=== PATIENT | male | born 1940 | race Caucasian/White ===

== ENCOUNTER 2018-01-07 21:00 | Inpatient (IN) | payer MEDICARE, MEDICAID ==
--- NOTE | 2018-01-07 21:27 | ED Physician Chart ---
ED Chief Complaint/HPI - Patient Information Date Seen:: 01/07/18 Time Seen:: 21:25 Chief Complaint:: Diarrhea History of Present Illness:: 77 yo male was brought from a correction to ER for evaluation of diarrhea for 1 week. Patient was hospitalized for UTI at [facility] and discharged 6 days ago. Patient was on oral amoxicillin until 3 days ago. Allergies:: Allergies Allergy/AdvReac Type Severity Reaction Status Date / Time cephalexin Allergy Verified 01/07/18 21:19 clindamycin Allergy Verified 01/07/18 21:19 ED Review of Systems - Review of Systems General/Constitutional: No fever, No chills Skin: No bruising Head: No headache Eyes: No pain ENT: No nasal drainage Neck: No thyromegaly Cardio Vascular: No edema Pulmonary: No SOB GI: No nausea, No vomiting Neurological: No focal symptoms Other: Limited review of systems due to mental disability of the patient ED Past Medical History - Past Medical History Past Medical History: Dyslipidemia, Seizures, Thyroid disorder, Other (PROFOUND INTELLECTUAL DISABILITY, HEP B CARRIER, BASAL CELL CARCINOMA, FLACCID NEUROGENIC BLADDER, CATARACTS) Social History: Non Smoker, No Alcohol, No Drug Use Psychiatricy History: Dementia Family Medical History - Family Member Mother History Unknown: Yes Ethnicity: Unknown ED Physical Exam - Physical Examination General/Constitutional: Awake Other Gen/Cons comments:: Wearing helmet to protect head trauma Eyes: PERRL Skin: No ecchymosis ENMT: Nasal exam nl Neck: No nuchal rigidity Respiratory: No Wheeze/Rhonchi/Rales Cardio Vascular: RRR, No murmur, gallop, rubs, NL S1 S2 GI: Nondistended Other GI comments:: G-tube intact Extremities: No edema Other Neuro/Psych comments:: profound intellectual disability ED Labs/Radiology/EKG Results - Lab Results Results: Laboratory Last Values WBC 9.7 Th/cmm (4.8-10.8) 01/07/18 21:30 RBC 4.64 Mil/cmm (3.80-5.80) 01/07/18 21:30 Hgb 14.1 gm/dL (12-16) 01/07/18 21:30 Hct 42.2 % (41.0-60) 01/07/18 21:30 MCV 91.0 fl (80-99) 01/07/18 21:30 MCH 30.3 pg (27.0-31.0) 01/07/18 21:30 MCHC Differential 33.3 pg (28.0-36.0) 01/07/18 21:30 RDW 12.0 % (11.5-20.0) 01/07/18 21:30 Plt Count 296 Th/cmm (150-400) 01/07/18 21:30 MPV 6.8 fl 01/07/18 21:30 Neutrophils % 64.8 % (40.0-80.0) 01/07/18 21:30 Lymphocytes % 21.7 % (20.0-50.0) 01/07/18 21:30 Monocytes % 11.5 % (2.0-10.0) H 01/07/18 21:30 Eosinophils % 1.1 % (0.0-5.0) 01/07/18 21: Basophils % 0.9 % (0.0-2.0) 01/07/18 21:30 PT 12.0 SECONDS (9.5-11.5) H 01/07/18 21:30 INR 1.16 (0.5-1.4) 01/07/18 21:30 PTT (Actin FS) 24.6 SECONDS (26.0-38.0) L 01/07/18 21:30 Sodium 130 mEq/L (136-145) L 01/07/18 21:30 Potassium 4.2 mEq/L (3.5-5.1) 01/07/18 21:30 Chloride 96 mEq/L (98-107) L 01/07/18 21:30 Carbon Dioxide 27.3 mEq/L (21.0-31.0) 01/07/18 21:30 Anion Gap 10.9 (7.0-16.0) 01/07/18 21:30 BUN 35 mg/dL (7-25) H 01/07/18 21:30 Creatinine 0.7 mg/dL (0.7-1.3) 01/07/18 21:30 Est GFR ( Amer) TNP 01/07/18 21:30 Est GFR (Non-Af Amer) TNP 01/07/18 21:30 BUN/Creatinine Ratio 50.0 01/07/18 21:30 Glucose 98 mg/dL (70-105) 01/07/18 21:30 POC Glucose 115 MG/DL (70 - 105) H 01/08/18 01:15 Whole Bld Lactic Acid 1.20 mmol/L (0.60-1.99) 01/07/18 23:20 Calcium 9.3 mg/dL (8.6-10.3) 01/07/18 21:30 Total Bilirubin 0.3 mg/dL (0.3-1.0) 01/07/18 21:30 AST 24 U/L (13-39) 01/07/18 21:30 ALT 17 U/L (7-52) 01/07/18 21:30 Alkaline Phosphatase 76 U/L (34-104) 01/07/18 21:30 Troponin I 0.01 ng/mL (0.01-0.05) 01/07/18 21:30 B-Natriuretic Peptide 78.8 pg/mL (5.0-100.0) 01/07/18 21:30 Total Protein 6.8 gm/dL (6.0-8.3) 01/07/18 21:30 Albumin 3.6 gm/dL (4.2-5.5) L 01/07/18 21:30 Globulin 3.2 gm/dL 01/07/18 21:30 Albumin/Globulin Ratio 1.1 (1.0-1.8) 01/07/18 21:30 Lipase 51 U/L (11-82) 01/07/18 21:30 Urine Source [place] 01/07/18 21:53 Urine Color YELLOW 01/07/18 21:53 Urine Clarity HAZY (CLEAR) 01/07/18 21:53 Urine pH 5.5 (4.6 - 8.0) 01/07/18 21:53 Ur Specific [place] 1.025 (1.005-1.030) 01/07/18 21:53 Urine Protein TRACE mg/dL (NEGATIVE) 01/07/18 21:53 Urine Glucose (UA) NEGATIVE mg/dL (NEGATIVE) 01/07/18 21:53 Urine Ketones NEGATIVE mg/dL (NEGATIVE) 01/07/18 21:53 Urine Blood NEGATIVE (NEGATIVE) 01/07/18 21:53 Urine Nitrate POSITIVE (NEGATIVE) H 01/07/18 21:53 Urine Bilirubin NEGATIVE (NEGATIVE) 01/07/18 21:53 Urine Urobilinogen 0.2 E.U./dL (0.2 - 1.0) 01/07/18 21:53 Ur Leukocyte Esterase SMALL (NEGATIVE) H 01/07/18 21:53 Urine RBC 0-2 /hpf (0-5) H 01/07/18 21:53 Urine WBC 2-5 /hpf (0-5) 01/07/18 21:53 Ur Epithelial Cells FEW /lpf (FEW) 01/07/18 21:53 Urine Bacteria FEW /hpf (NONE SEEN) 01/07/18 21:53 Urine Mucus FEW /lpf (FEW) 01/07/18 21:53 ED Assessment - Assessment General Assessment: Urinary tract infection Gastroenteritis/colitis? Dehydration Hyponatremia Mental retardation Assessment/Comments:: CBC, CMP, UA C-diff Levaquin 500mg IV NS 1L IV bolus Admit to telemetry for further evaluation and management ED Septic Shock - . Is Septic Shock (SBP<90, OR Lactate>4 mmol\L) present?: No ED Reassessment (Disposition) - Reassessment Reassessment Condition:: Improved - Patient Disposition Discharge/Transfer:: Acute Care w/in this hosp Admitting Medical Physician:: Nito Vasquez
[2018-01-07 21:46] LABS: % BASOPHILS 0.9 % (0.0-2.0); % EOSINOPHILS 1.1 % (0.0-5.0); % LYMPHOCYTES 21.7 % (20.0-50.0); % MONOCYTES 11.5 % (2.0-10.0); % NEUTROPHILS 64.8 % (40.0-80.0); BASOPHILE ABSOLUTE 0.1 Th/cumm (0-0.2); EOSINOPHILE ABSOLUTE 0.1 Th/cmm (0.1-0.4); HEMATOCRIT 42.2 % (41.0-60); HEMOGLOBIN 14.1 gm/dL (12-16); LYMPHOCYTE ABSOLUTE 2.1 Th/cmm (1.5-3.0); MEAN CORPUSCULAR HEMOGLOBIN 30.3 pg (27.0-31.0); MEAN CORPUSCULAR HGB CONC 33.3 pg (28.0-36.0); MEAN PLATELET VOLUME 6.8 fl; MONOCYTE ABSOLUTE 1.1 Th/cmm (0.3-1.0); NEUTROPHILE ABSOLUTE 6.3 Th/cmm (1.8-8.0); PLATELET COUNT 296 Th/cmm (150-400); RED BLOOD COUNT 4.64 Mil/cmm (3.80-5.80); WHITE BLOOD COUNT 9.7 Th/cmm (4.8-10.8)
[2018-01-07 22:03] LABS: INR 1.16 (0.5-1.4)
[2018-01-07 22:14] LABS: URINE SOURCE FOLEY PORT
[2018-01-07 22:16] LABS: URINE BILIRUBIN NEGATIVE (NEGATIVE); URINE BLOOD NEGATIVE (NEGATIVE); URINE GLUCOSE (UA) NEGATIVE (NEGATIVE); URINE KETONE NEGATIVE (NEGATIVE); URINE LEUKOCYTE ESTERASE SMALL (NEGATIVE); URINE MICROSCOPIC INDICATED? YES; URINE NITRATE POSITIVE (NEGATIVE); URINE PH 5.5 (4.6 - 8.0); URINE PROTEIN TRACE mg/dL (NEGATIVE); URINE UROBILINOGEN 0.2 E.U./dL (0.2 - 1.0)
[2018-01-07 22:30] LABS: URINE COLOR YELLOW
[2018-01-07 22:31] LABS: URINE CLARITY HAZY (CLEAR)
[2018-01-07 22:39] LABS: URINE RBC 0-2 /hpf (0-5)
[2018-01-07 22:40] LABS: URINE BACTERIA FEW /hpf (NONE SEEN); URINE EPITHELIAL CELLS FEW /lpf (FEW)
[2018-01-07] MEDS ORDERED: Levofloxacin 500mg/100mL 500 MG/100 ML BAG IV ONE ×2 (22:57→23:02)
[2018-01-07 23:11] LABS: ALB/GLOB RATIO 1.1 (1.0-1.8); ALBUMIN 3.6 gm/dL (4.2-5.5); ALKALINE PHOSPHATASE 76 U/L (34-104); ANION GAP 10.9 (7.0-16.0); BILIRUBIN,TOTAL 0.3 mg/dL (0.3-1.0); BUN - UREA NITROGEN 35 mg/dL (7-25); CALCIUM SERUM 9.3 mg/dL (8.6-10.3); CARBON DIOXIDE 27.3 mEq/L (21.0-31.0); CHLORIDE 96 mEq/L (98-107); CREATININE - SERUM 0.7 mg/dL (0.7-1.3); GLUCOSE 98 mg/dL (70-105); LIPASE 51 U/L (11-82); POTASSIUM SERUM 4.2 mEq/L (3.5-5.1); SGOT 24 U/L (13-39); SGPT/ALT 17 U/L (7-52); TOTAL PROTEIN,SERUM 6.8 gm/dL (6.0-8.3)
[2018-01-07 23:14] LABS: SODIUM SERUM 130 mEq/L (136-145)
[2018-01-07] MEDS ORDERED: Sodium Chloride 0.9% 1,000 ML IV ONE (23:24)
[2018-01-07] MEDS ORDERED: ACETAMINOPHEN 640 MG GT PRN (23:45)
[2018-01-07] MEDS ORDERED: Albuterol Nebulizer 2.5mg/3mL HHN PRN (23:47)
[2018-01-07] MEDS ORDERED: Ipratropium Neb 0.5 mg/2.5 mL UD HHN PRN (23:47)
[2018-01-08 01:40] VITALS: BP 128/57
[2018-01-08] MEDS: D5-0.9%NS 1,000 ML IV SCH ×2 (03:05→16:04)
[2018-01-08] MEDS: metroNIDAZOLE 500mg/NS 100mL 500 MG/100 ML BAG IV SCH ×3 (04:27→21:10)
[2018-01-08] MEDS: Levothyroxine 0.088 Mg Tab GT SCH (06:40)
[2018-01-08] MEDS: Multivitamin w/ Minerals 15 mL UDC GT SCH (08:40)
[2018-01-08] MEDS ORDERED: FLUOCINOLONE ACETONIDE 0.01% TP SCH (09:00)
[2018-01-08] MEDS ORDERED: Lacosamide 10 mg/mL 10mL UDC GT SCH (09:00)
--- NOTE | 2018-01-08 11:57 | History and Physical ---
History of Present Illness - HPI Chief Complaint: diarrhea HPI: This is a 77-year old male who is a resident of [facility] admitted to the telemetry unit due to a 1 week history of diarrhea. Patient was recently discharged from [facility] due to UTI and was given po amoxicillin, patient still remained with diarrhea, no reports of any fever at the board and care. Vital Signs: Last Vital Signs Temp 97.3 F 01/08/18 11:52 Pulse 71 01/08/18 11:52 Resp 18 01/08/18 11:52 BP 107/82 01/08/18 11:52 Pulse Ox 99 01/08/18 11:52 Past Medical History Other History: dyslipidemia seizures hypothyroid hep b basal cell carcinoma flaccid neurogenic bladder cataracts profound intellectual disability Family Medical History - Family Member Mother History Unknown: Yes Ethnicity: Unknown Social History Smoke: No Alcohol: None Drugs: None Lives: Care Home - Medications Home Medications: Home Medication Medication Instructions Recorded Type Acetaminophen [Mapap] 640 mg GT Q8H PRN 01/07/18 History Albuterol [Ventolin] 2 puff INH QID PRN 01/07/18 History Bisacodyl [Biscolax] 10 mg RC Q48H PRN 01/07/18 History Calcium Carbonate 1,250 mg GT DAILY 01/07/18 History Cholecalciferol (Vit D3) [Vitamin 500 iu GT BID 01/07/18 History D3] Clonidine HCl [Catapres] 0.1 mg GT Q8H PRN 01/07/18 History Fleet Enema 135 ml RC PRN PRN 01/07/18 History Fluocinolone Acetonide 0.01 % TP BID 01/07/18 History Guaifenesin/Dm/Pseudoephedrine 200 mg GT Q4H PRN 01/07/18 History [Guaifenesin/Pseudoephedrine/Dextromethorphan ] Ibuprofen 400 mg GT Q6H PRN 01/07/18 History Lacosamide [Vimpat] 200 mg GT BID 01/07/18 History Lactulose 30 ml GT BID 01/07/18 History Levocarnitine 660 mg GT TID 01/07/18 History Levothyroxine [Synthroid] 0.088 mg GT QDAC 01/07/18 History Lisinopril 10 mg GT DAILY 01/07/18 History Multivit,Th Iron,Other Min 1 tab GT DAILY 01/07/18 History [Thera-M W/Minerals] Oxybutynin Chloride 10 mg GT DAILY 01/07/18 History Ranitidine HCl 75 mg GT BID 01/07/18 History Valproic Acid [Depakene] 250 mg GT BID 01/07/18 History Valproic Acid [Depakene] 500 mg GT QPM 01/07/18 History diphenhydrAMINE [Benadryl] 25 mg GT PRN PRN 01/07/18 History - Allergies Allergies/Adverse Reactions: Allergies Allergy/AdvReac Type Severity Reaction Status Date / Time cephalexin Allergy Verified 01/07/18 21:19 clindamycin Allergy Verified 01/07/18 21:19 Review of Systems - Review of Systems Constitutional: Report: Weakness Eyes: Report: No Significant Respiratory: Report: No Significant Cardiovascular: Report: No Significant Gastrointestinal: Report: Diarrhea Neurological: Report: Weakness, Seizures Physical Exam - Physical Exam HEENT: Report: Ears Nose Throat within normal limits Neck: Report: Within normal limits Cardiovascular Systems: Report: +s1/s2 noted, Regular, Rate and Rhythm, no murmurs noted Respiratory: Report: Breath Sounds are within normal limits, Clear to Auscultation of lung pretty Abdomen: Report: Non-tender to palpation Back: Report: Inspection of back is within normal limits. Extremities: Report: Non-tender to palpation. Skin: Report: Color of skin is within normal limits, Warm, Dry Neuro/Psych: Report: Mood affect is within normal limits - Lab Results All Lab Results last 24 hours: Laboratory Results - last 24 hr 01/07/18 01/07/18 01/07/18 21:30 21:30 21:30 WBC 9.7 RBC 4.64 Hgb 14.1 Hct 42.2 MCV 91.0 MCH 30.3 MCHC Differential 33.3 RDW 12.0 Plt Count 296 MPV 6.8 Neutrophils % 64.8 Lymphocytes % 21.7 Monocytes % 11.5 H Eosinophils % 1.1 Basophils % 0.9 PT 12.0 H INR 1.16 PTT (Actin FS) 24.6 L Sodium 130 L Potassium 4.2 Chloride 96 L Carbon Dioxide 27.3 Anion Gap 10.9 BUN 35 H Creatinine 0.7 Est GFR ( Amer) TNP Est GFR (Non-Af Amer) TNP BUN/Creatinine Ratio 50.0 Glucose 98 POC Glucose Whole Bld Lactic Acid Calcium 9.3 Total Bilirubin 0.3 AST 24 ALT 17 Alkaline Phosphatase 76 Troponin I B-Natriuretic Peptide Total Protein 6.8 Albumin 3.6 L Globulin 3.2 Albumin/Globulin Ratio 1.1 Lipase 51 Urine Source Urine Color Urine Clarity Urine pH Ur Specific [place] Urine Protein Urine Glucose (UA) Urine Ketones Urine Blood Urine Nitrate Urine Bilirubin Urine Urobilinogen Ur Leukocyte Esterase Urine RBC Urine WBC Ur Epithelial Cells Urine Bacteria Urine Mucus 01/07/18 01/07/18 01/07/18 21:30 21:30 21:53 WBC RBC Hgb Hct MCV MCH MCHC Differential RDW Plt Count MPV Neutrophils % Lymphocytes % Monocytes % Eosinophils % Basophils % PT INR PTT (Actin FS) Sodium Potassium Chloride Carbon Dioxide Anion Gap BUN Creatinine Est GFR ( Amer) Est GFR (Non-Af Amer) BUN/Creatinine Ratio Glucose POC Glucose Whole Bld Lactic Acid Calcium Total Bilirubin AST ALT Alkaline Phosphatase Troponin I 0.01 B-Natriuretic Peptide 78.8 Total Protein Albumin Globulin Albumin/Globulin Ratio Lipase Urine Source [place] Urine Color YELLOW Urine Clarity HAZY Urine pH 5.5 Ur Specific [place] 1.025 Urine Protein TRACE Urine Glucose (UA) NEGATIVE Urine Ketones NEGATIVE Urine Blood NEGATIVE Urine Nitrate POSITIVE H Urine Bilirubin NEGATIVE Urine Urobilinogen 0.2 Ur Leukocyte Esterase SMALL H Urine RBC 0-2 H Urine WBC 2-5 Ur Epithelial Cells FEW Urine Bacteria FEW Urine Mucus FEW 01/07/18 01/08/18 23:20 01:15 WBC RBC Hgb Hct MCV MCH MCHC Differential RDW Plt Count MPV Neutrophils % Lymphocytes % Monocytes % Eosinophils % Basophils % PT INR PTT (Actin FS) Sodium Potassium Chloride Carbon Dioxide Anion Gap BUN Creatinine Est GFR ( Amer) Est GFR (Non-Af Amer) BUN/Creatinine Ratio Glucose POC Glucose 115 H Whole Bld Lactic Acid 1.20 Calcium Total Bilirubin AST ALT Alkaline Phosphatase Troponin I B-Natriuretic Peptide Total Protein Albumin Globulin Albumin/Globulin Ratio Lipase Urine Source Urine Color Urine Clarity Urine pH Ur Specific [place] Urine Protein Urine Glucose (UA) Urine Ketones Urine Blood Urine Nitrate Urine Bilirubin Urine Urobilinogen Ur Leukocyte Esterase Urine RBC Urine WBC Ur Epithelial Cells Urine Bacteria Urine Mucus - Assessment Assessment: Severe dehydration Diarrhea Acute UTI dyslipidemia seizures hypothyroid hx hep b hx basal cell carcinoma flaccid neurogenic bladder profound intellectual disability - Plan Plan: ivf for hydration collect stool for cdiff and culture iv flagyl follow up labs in am will continue to follow patient.
[2018-01-09] MEDS: metroNIDAZOLE 500mg/NS 100mL 500 MG/100 ML BAG IV SCH ×3 (04:19→20:52)
[2018-01-09] MEDS: D5-0.9%NS 1,000 ML IV SCH (04:26)
[2018-01-09 06:21] LABS: % BASOPHILS 0.3 % (0.0-2.0); % EOSINOPHILS 0.8 % (0.0-5.0); % LYMPHOCYTES 19.3 % (20.0-50.0); % MONOCYTES 12.6 % (2.0-10.0); EOSINOPHILE ABSOLUTE 0.1 Th/cmm (0.1-0.4); HEMOGLOBIN 12.8 gm/dL (12-16); LYMPHOCYTE ABSOLUTE 1.8 Th/cmm (1.5-3.0); MEAN CELL VOLUME 91.3 fl (80-99); MEAN CORPUSCULAR HEMOGLOBIN 31.7 pg (27.0-31.0); MEAN CORPUSCULAR HGB CONC 34.7 pg (28.0-36.0); MEAN PLATELET VOLUME 6.8 fl; MONOCYTE ABSOLUTE 1.1 Th/cmm (0.3-1.0); NEUTROPHILE ABSOLUTE 6.1 Th/cmm (1.8-8.0); PLATELET COUNT 253 Th/cmm (150-400); RED BLOOD COUNT 4.05 Mil/cmm (3.80-5.80); RED CELL DISTRIBUTION WIDTH 11.7 % (11.5-20.0); WHITE BLOOD COUNT 9.1 Th/cmm (4.8-10.8)
[2018-01-09 06:36] LABS: ANION GAP 10.8 (7.0-16.0); BUN - UREA NITROGEN 17 mg/dL (7-25); CALCIUM SERUM 8.8 mg/dL (8.6-10.3); CARBON DIOXIDE 25.6 mEq/L (21.0-31.0); CHLORIDE 101 mEq/L (98-107); CREATININE - SERUM 0.7 mg/dL (0.7-1.3); GLUCOSE 89 mg/dL (70-105); POTASSIUM SERUM 4.4 mEq/L (3.5-5.1); SODIUM SERUM 133 mEq/L (136-145)
[2018-01-09] MEDS: Levothyroxine 0.088 Mg Tab GT SCH (06:50)
[2018-01-09] MEDS: Multivitamin w/ Minerals 15 mL UDC GT SCH (09:26)
--- NOTE | 2018-01-09 10:50 | Internal Medicine Prog Note ---
Internal Medicine Subjective - Subjective Service Date: 01/09/18 Patient seen and examined:: with staff Patient is:: awake Per staff patient has:: tolerating meds Internal Medicine Objective - Results Result Diagrams: 01/09/18 05:40 01/09/18 05:40 Recent Labs: Laboratory Last Values WBC 9.1 Th/cmm (4.8-10.8) 01/09/18 05:40 RBC 4.05 Mil/cmm (3.80-5.80) 01/09/18 05:40 Hgb 12.8 gm/dL (12-16) 01/09/18 05:40 Hct 37.0 % (41.0-60) L 01/09/18 05:40 MCV 91.3 fl (80-99) 01/09/18 05:40 MCH 31.7 pg (27.0-31.0) H 01/09/18 05:40 MCHC Differential 34.7 pg (28.0-36.0) 01/09/18 05:40 RDW 11.7 % (11.5-20.0) 01/09/18 05:40 Plt Count 253 Th/cmm (150-400) 01/09/18 05:40 MPV 6.8 fl 01/09/18 05:40 Neutrophils % 67.0 % (40.0-80.0) 01/09/18 05:40 Lymphocytes % 19.3 % (20.0-50.0) L 01/09/18 05:40 Monocytes % 12.6 % (2.0-10.0) H 01/09/18 05:40 Eosinophils % 0.8 % (0.0-5.0) 01/09/18 05:40 Basophils % 0.3 % (0.0-2.0) 01/09/18 05:40 PT 12.0 SECONDS (9.5-11.5) H 01/07/18 21:30 INR 1.16 (0.5-1.4) 01/07/18 21:30 PTT (Actin FS) 24.6 SECONDS (26.0-38.0) L 01/07/18 21:30 Sodium 133 mEq/L (136-145) L 01/09/18 05:40 Potassium 4.4 mEq/L (3.5-5.1) 01/09/18 05:40 Chloride 101 mEq/L (98-107) 01/09/18 05:40 Carbon Dioxide 25.6 mEq/L (21.0-31.0) 01/09/18 05:40 Anion Gap 10.8 (7.0-16.0) 01/09/18 05:40 BUN 17 mg/dL (7-25) 01/09/18 05:40 Creatinine 0.7 mg/dL (0.7-1.3) 01/09/18 05:40 Est GFR ( Amer) TNP 01/09/18 05:40 Est GFR (Non-Af Amer) TNP 01/09/18 05:40 BUN/Creatinine Ratio 24.3 01/09/18 05:40 Glucose 89 mg/dL (70-105) 01/09/18 05:40 POC Glucose 115 MG/DL (70 - 105) H 01/08/18 01:15 Whole Bld Lactic Acid 1.20 mmol/L (0.60-1.99) 01/07/18 23:20 Calcium 8.8 mg/dL (8.6-10.3) 01/09/18 05:40 Total Bilirubin 0.3 mg/dL (0.3-1.0) 01/07/18 21:30 AST 24 U/L (13-39) 01/07/18 21:30 ALT 17 U/L (7-52) 01/07/18 21:30 Alkaline Phosphatase 76 U/L (34-104) 01/07/18 21:30 Troponin I 0.01 ng/mL (0.01-0.05) 01/07/18 21:30 B-Natriuretic Peptide 78.8 pg/mL (5.0-100.0) 01/07/18 21:30 Total Protein 6.8 gm/dL (6.0-8.3) 01/07/18 21:30 Albumin 3.6 gm/dL (4.2-5.5) L 01/07/18 21:30 Globulin 3.2 gm/dL 01/07/18 21:30 Albumin/Globulin Ratio 1.1 (1.0-1.8) 01/07/18 21:30 Lipase 51 U/L (11-82) 01/07/18 21:30 Urine Source [place] 01/07/18 21:53 Urine Color YELLOW 01/07/18 21:53 Urine Clarity HAZY (CLEAR) 01/07/18 21:53 Urine pH 5.5 (4.6 - 8.0) 01/07/18 21:53 Ur Specific [place] 1.025 (1.005-1.030) 01/07/18 21:53 Urine Protein TRACE mg/dL (NEGATIVE) 01/07/18 21:53 Urine Glucose (UA) NEGATIVE mg/dL (NEGATIVE) 01/07/18 21:53 Urine Ketones NEGATIVE mg/dL (NEGATIVE) 01/07/18 21:53 Urine Blood NEGATIVE (NEGATIVE) 01/07/18 21:53 Urine Nitrate POSITIVE (NEGATIVE) H 01/07/18 21:53 Urine Bilirubin NEGATIVE (NEGATIVE) 01/07/18 21:53 Urine Urobilinogen 0.2 E.U./dL (0.2 - 1.0) 01/07/18 21:53 Ur Leukocyte Esterase SMALL (NEGATIVE) H 01/07/18 21:53 Urine RBC 0-2 /hpf (0-5) H 01/07/18 21:53 Urine WBC 2-5 /hpf (0-5) 01/07/18 21:53 Ur Epithelial Cells FEW /lpf (FEW) 01/07/18 21:53 Urine Bacteria FEW /hpf (NONE SEEN) 01/07/18 21:53 Urine Mucus FEW /lpf (FEW) 01/07/18 21:53 - Physical Exam Vitals and I&O: Vital Signs Temp 97.0 F 01/09/18 07:48 Pulse 97 01/09/18 09:24 Resp 18 01/09/18 07:48 BP 132/53 01/09/18 09:24 Pulse Ox 99 01/09/18 07:48 Intake & Output 01/08/18 01/09/18 01/09/18 18:59 06:59 18:59 Intake Total 1900 1089.333 Output Total 1600 1300 Balance 300 -210.667 Weight (lbs) 153 lb 153 lb Intake: Intake, IV Amount 1100 1089.333 D5-0.9%Ns 1,000 ml @ 80 1000 989.333 mls/hr IV .[id number] [facility] Rx #:[id number] metroNIDAZOLE 500mg/NS 100 100 100mL 500 mg In 100 ml @ 100 mls/hr IV Q8HR [facility] Rx #:[id number] Tube Feeding 800 Output: Urine 1600 1300 Other: # Bowel Movements 0 Weight Source Bedscale Bedscale Active Medications: Current Medications Acetaminophen (Tylenol 650mg/20.3ml Suspension) 650 mg GT Q4H PRN PRN Reason: Mild Pain 1-3/ Fever above 101 Stop: 03/08/18 23:46 Albuterol Sulfate (Albuterol 2.5mg/3ml Neb Ud) 2.5 mg HHN Q2HRT PRN PRN Reason: Shortness of Breath or Wheeze Stop: 03/08/18 23:46 Calcium Carbonate (Tums) 1,250 mg GT DAILY [facility] Stop: 03/09/18 08:59 Last Admin: 01/09/18 09:23 Dose: 1,250 mg Diphenhydramine HCl (Benadryl) 25 mg GT PRN PRN PRN Reason: Rash Stop: 03/08/18 23:44 Famotidine (Pepcid) 10 mg PO BID [facility] Stop: 03/09/18 08:59 Last Admin: 01/09/18 09:25 Dose: 10 mg Dextrose/Sodium Chloride (D5-0.9%Ns) 1,000 mls @ 80 mls/hr IV .[id number] [facility] Stop: 03/08/18 23:44 Last Admin: 01/09/18 04:26 Dose: 80 mls/hr Metronidazole (Flagyl) 500 mg in 100 mls @ 100 mls/hr IV Q8HR [facility] Stop: 03/09/18 04:59 Last Admin: 01/09/18 04:19 Dose: 100 mls/hr Ipratropium [place] (Atrovent Neb 0.5mg/2.5ml) 0.5 mg HHN Q2HRT PRN PRN Reason: Shortness of Breath or Wheeze Stop: 03/08/18 23:46 Lacosamide (Vimpat) 200 mg GT BID [facility] Stop: 03/09/18 08:59 Last Admin: 01/09/18 09:24 Dose: 200 mg Levothyroxine Sodium (Synthroid) 0.088 mg GT QDAC [facility] Stop: 03/09/18 07:29 Last Admin: 01/09/18 06:50 Dose: 0.088 mg Lisinopril (Zestril) 10 mg GT DAILY [facility] Stop: 03/09/18 08:59 Last Admin: 01/09/18 09:24 Dose: 10 mg Miscellaneous (Fluocinolone Acetonide [Fluocinolone Acetonide]) 0.01 % TP BID [facility] Stop: 03/09/18 08:59 Multivitamins/Minerals (Theragran M) 15 ml GT DAILY [place] Stop: 03/09/18 08:59 Last Admin: 01/09/18 09:26 Dose: 15 ml Ondansetron HCl (Zofran) 4 mg IV Q8H PRN PRN Reason: Nausea / Vomiting Stop: 03/08/18 23:46 Oxybutynin Chloride (Ditropan) 10 mg GT DAILY [facility] Stop: 03/09/18 08:59 Last Admin: 01/09/18 09:25 Dose: 10 mg Valproate Sodium (Depakene) 500 mg GT 1800 [place]; Protocol Stop: 03/09/18 17:59 Last Admin: 01/08/18 17:01 Dose: 500 mg Valproate Sodium (Depakene) 250 mg GT 0600,1400 [place]; Protocol Stop: 03/09/18 05:59 Last Admin: 01/09/18 06:50 Dose: 250 mg General: weak, alert HEENT: NC/AT, PERRLA Neck: Supple Lungs: CTAB Cardiovascular: RRR, Normal S1, without murmur Abdomen: soft, non-tender, non-distended, positive bowel sound Extremities: excoriation Neurological: alert, unable to follow command Internal Medicine Assmt/Plan - Assessment Assessment: Severe dehydration Diarrhea Acute UTI dyslipidemia seizures hypothyroid hx hep b hx basal cell carcinoma flaccid neurogenic bladder profound intellectual disability - Plan Plan: ivf for hydration await for stool for cdiff and stool cultures iv flagyl to continue follow up labs in am continue current plan of care . Nutritional Asmnt/Malnutr-PDOC - Dietary Evaluation Malnutrition Findings (Please click <Entered> for more info): Nutritional Asmnt/Malnutrition Start: 01/08/18 17: 00 Text: Status: Complete Freq: Protocol: Document 01/08/18 17:00 ELGIN (Rec: 01/08/18 17:28 ELGIN [email or web address]) Nutritional Asmnt/Malnutrition Patient General Information Nutritional Screening High Risk Diagnosis severe dehydration, UTI, diarrhea Pertinent Medical Hx/Surgical Hx dyslipidemia, seizures, hypothyroid, hep b, basal cell carcinoma, flaccid neurogenic bladder, cataracts, profound intellectual disability Subjective Information per H&P pt had diarrhea for one week before admission. Per nurse, pt has no more emesis today. Current Diet Order/ Nutrition Support Jevity 1.2 bolus 2 cans TID Pertinent Medications D5-0.9%ns, synthroid, theragran Pertinent Labs 01/07 Na 130, Cl 96, BUN 35, glucose 98, POC 115 Nutritional Hx/Data Height 5 ft 4 in Height (Calculated Centimeters) 162.6 Current Weight (lbs) 151 lb Weight (Calculated Kilograms) 68.5 Weight (Calculated Grams) 16587.4 [employer] Body Weight 130 Body Mass Index (BMI) 25.9 Weight Status Overweight GI Symptoms GI Symptoms None Last BM not indicated Difficult in: None Skin Integrity/Comment: intact, reddened to buttocks Estimated Nutritional Goals BEE in Kcals: Using Current wt Calories/Kcals/Kg 23-27 Kcals Calculated 5465-4751 Protein: Using Current wt Protein g/k-1.2 monitor renal labs Protein Calculated 68-82 Fluid: ml 1564-1836ml (1ml/kcal) Nutritional Problem 1. Problem Problem altered nutrition related labs Etiology electrolytes/fluid imbalance Signs/Symptoms: Na 130, Cl 96, BUN 35 Malnutrition Alert Is there a minimum of two criteria No selected? Query Text:Check all the applicable criteria. A minimum of two criteria are recommended for diagnosis of either severe or non-severe malnutrition. Malnutrition Related to Morbid Obesity Malnutrition related to morbid obesity No Intervention/Recommendation Comments 1. Continue with current TF regimen. It provides 1422mkl total volume, 1706kcal, 79g protein, 1148ml free water, meeting 100% of nutritional needs 2. Monitor TF tolerance, wt, skin integrity and labs 3. F/U as high risk in 2-3 days, 01/10-01/11 Expected Outcomes/Goals Expected Outcomes/Goals 1. Pt to meet at least 75% of nutritional needs via nutrition support with tolerance 2. Wt stability, skin to remain intact, labs to approach WNL.
[2018-01-10] MEDS: metroNIDAZOLE 500mg/NS 100mL 500 MG/100 ML BAG IV SCH (04:23)
[2018-01-10] MEDS: Levothyroxine 0.088 Mg Tab GT SCH (06:43)
[2018-01-10 06:50] LABS: HEMATOCRIT 35.6 % (41.0-60); HEMOGLOBIN 12.1 gm/dL (12-16); MEAN CELL VOLUME 92.4 fl (80-99); MEAN CORPUSCULAR HEMOGLOBIN 31.3 pg (27.0-31.0); MEAN CORPUSCULAR HGB CONC 33.9 pg (28.0-36.0); PLATELET COUNT 221 Th/cmm (150-400); RED BLOOD COUNT 3.86 Mil/cmm (3.80-5.80); WHITE BLOOD COUNT 7.3 Th/cmm (4.8-10.8)
[2018-01-10 07:06] LABS: ANION GAP 9.9 (7.0-16.0); BUN - UREA NITROGEN 17 mg/dL (7-25); CALCIUM SERUM 8.6 mg/dL (8.6-10.3); CARBON DIOXIDE 26.4 mEq/L (21.0-31.0); CHLORIDE 102 mEq/L (98-107); CREATININE - SERUM 0.7 mg/dL (0.7-1.3); GLUCOSE 79 mg/dL (70-105); POTASSIUM SERUM 4.3 mEq/L (3.5-5.1); SODIUM SERUM 134 mEq/L (136-145)
[2018-01-10 07:51] LABS: BAND NEUTROPHILE 2 % (0-10); BASOPHIL 0 % (0-3); EOSINOPHIL 3 % (0-5); LYMPHOCYTE 36 % (20-50); MONOCYTE 11 % (2-10); NEUTROPHILS 48 % (40-80)
[2018-01-10] MEDS: Multivitamin w/ Minerals 15 mL UDC GT SCH (10:49)
--- NOTE | 2018-01-10 13:37 | Internal Medicine Prog Note ---
Internal Medicine Subjective - Subjective Service Date: 01/10/18 (dc summary [id number]) Patient is:: awake Per staff patient has:: tolerating meds Internal Medicine Objective - Results Result Diagrams: 01/10/18 06:15 01/10/18 06:15 Recent Labs: Laboratory Last Values WBC 7.3 Th/cmm (4.8-10.8) 01/10/18 06:15 RBC 3.86 Mil/cmm (3.80-5.80) 01/10/18 06:15 Hgb 12.1 gm/dL (12-16) 01/10/18 06:15 Hct 35.6 % (41.0-60) L 01/10/18 06:15 MCV 92.4 fl (80-99) 01/10/18 06:15 MCH 31.3 pg (27.0-31.0) H 01/10/18 06:15 MCHC Differential 33.9 pg (28.0-36.0) 01/10/18 06:15 RDW 12.0 % (11.5-20.0) 01/10/18 06:15 Plt Count 221 Th/cmm (150-400) 01/10/18 06:15 MPV 7.0 fl 01/10/18 06:15 Add Manual Diff YES 01/10/18 06:15 Neutrophils % 67.0 % (40.0-80.0) 01/09/18 05:40 Band Neutrophils % 2 % (0-10) 01/10/18 06:15 Lymphocytes % 19.3 % (20.0-50.0) L 01/09/18 05:40 Monocytes % 12.6 % (2.0-10.0) H 01/09/18 05:40 Eosinophils % 0.8 % (0.0-5.0) 01/09/18 05:40 Basophils % 0.3 % (0.0-2.0) 01/09/18 05:40 Neutrophils (Manual) 48 % (40-80) 01/10/18 06:15 Lymphocytes 36 % (20-50) 01/10/18 06:15 Monocytes 11 % (2-10) H 01/10/18 06:15 Eosinophils 3 % (0-5) 01/10/18 06:15 Basophils 0 % (0-3) 01/10/18 06:15 PT 12.0 SECONDS (9.5-11.5) H 01/07/18 21:30 INR 1.16 (0.5-1.4) 01/07/18 21:30 PTT (Actin FS) 24.6 SECONDS (26.0-38.0) L 01/07/18 21:30 Sodium 134 mEq/L (136-145) L 01/10/18 06:15 Potassium 4.3 mEq/L (3.5-5.1) 01/10/18 06:15 Chloride 102 mEq/L (98-107) 01/10/18 06:15 Carbon Dioxide 26.4 mEq/L (21.0-31.0) 01/10/18 06:15 Anion Gap 9.9 (7.0-16.0) 01/10/18 06:15 BUN 17 mg/dL (7-25) 01/10/18 06:15 Creatinine 0.7 mg/dL (0.7-1.3) 01/10/18 06:15 Est GFR ( Amer) TNP 01/10/18 06:15 Est GFR (Non-Af Amer) TNP 01/10/18 06:15 BUN/Creatinine Ratio 24.3 01/10/18 06:15 Glucose 79 mg/dL (70-105) 01/10/18 06:15 POC Glucose 115 MG/DL (70 - 105) H 01/08/18 01:15 Whole Bld Lactic Acid 1.20 mmol/L (0.60-1.99) 01/07/18 23:20 Calcium 8.6 mg/dL (8.6-10.3) 01/10/18 06:15 Total Bilirubin 0.3 mg/dL (0.3-1.0) 01/07/18 21:30 AST 24 U/L (13-39) 01/07/18 21:30 ALT 17 U/L (7-52) 01/07/18 21:30 Alkaline Phosphatase 76 U/L (34-104) 01/07/18 21:30 Troponin I 0.01 ng/mL (0.01-0.05) 01/07/18 21:30 B-Natriuretic Peptide 78.8 pg/mL (5.0-100.0) 01/07/18 21:30 Total Protein 6.8 gm/dL (6.0-8.3) 01/07/18 21:30 Albumin 3.6 gm/dL (4.2-5.5) L 01/07/18 21:30 Globulin 3.2 gm/dL 01/07/18 21:30 Albumin/Globulin Ratio 1.1 (1.0-1.8) 01/07/18 21:30 Lipase 51 U/L (11-82) 01/07/18 21:30 Urine Source [place] 01/07/18 21:53 Urine Color YELLOW 01/07/18 21:53 Urine Clarity HAZY (CLEAR) 01/07/18 21:53 Urine pH 5.5 (4.6 - 8.0) 01/07/18 21:53 Ur Specific [place] 1.025 (1.005-1.030) 01/07/18 21:53 Urine Protein TRACE mg/dL (NEGATIVE) 01/07/18 21:53 Urine Glucose (UA) NEGATIVE mg/dL (NEGATIVE) 01/07/18 21:53 Urine Ketones NEGATIVE mg/dL (NEGATIVE) 01/07/18 21:53 Urine Blood NEGATIVE (NEGATIVE) 01/07/18 21:53 Urine Nitrate POSITIVE (NEGATIVE) H 01/07/18 21:53 Urine Bilirubin NEGATIVE (NEGATIVE) 01/07/18 21:53 Urine Urobilinogen 0.2 E.U./dL (0.2 - 1.0) 01/07/18 21:53 Ur Leukocyte Esterase SMALL (NEGATIVE) H 01/07/18 21:53 Urine RBC 0-2 /hpf (0-5) H 01/07/18 21:53 Urine WBC 2-5 /hpf (0-5) 01/07/18 21:53 Ur Epithelial Cells FEW /lpf (FEW) 01/07/18 21:53 Urine Bacteria FEW /hpf (NONE SEEN) 01/07/18 21:53 Urine Mucus FEW /lpf (FEW) 01/07/18 21:53 - Physical Exam Vitals and I&O: Vital Signs Temp 97.5 F 01/10/18 11:56 Pulse 65 01/10/18 11:56 Resp 17 01/10/18 11:56 BP 127/62 01/10/18 11:56 Pulse Ox 98 01/10/18 11:56 Intake & Output 01/09/18 01/10/18 01/10/18 18:59 06:59 18:59 Intake Total 1240 100 Output Total 1200 700 Balance 40 -600 Weight (lbs) 154 lb 11.2 oz 154 lb Intake: Intake, IV Amount 100 100 metroNIDAZOLE 500mg/NS 100 100 100mL 500 mg In 100 ml @ 100 mls/hr IV Q8HR [facility] Rx #:[id number] Tube Feeding 1140 Output: Urine 1200 700 Other: # Bowel Movements 0 Weight Source Bedscale Bedscale Active Medications: Current Medications Acetaminophen (Tylenol 650mg/20.3ml Suspension) 650 mg GT Q4H PRN PRN Reason: Mild Pain 1-3/ Fever above 101 Stop: 03/08/18 23:46 Last Admin: 01/09/18 20:53 Dose: 650 mg Albuterol Sulfate (Albuterol 2.5mg/3ml Neb Ud) 2.5 mg HHN Q2HRT PRN PRN Reason: Shortness of Breath or Wheeze Stop: 03/08/18 23:46 Calcium Carbonate (Tums) 1,250 mg GT DAILY [facility] Stop: 03/09/18 08:59 Last Admin: 01/10/18 10:47 Dose: 1,250 mg Diphenhydramine HCl (Benadryl) 25 mg GT PRN PRN PRN Reason: Rash Stop: 03/08/18 23:44 Famotidine (Pepcid) 10 mg PO BID [facility] Stop: 03/09/18 08:59 Last Admin: 01/10/18 10:47 Dose: 10 mg Ipratropium [place] (Atrovent Neb 0.5mg/2.5ml) 0.5 mg HHN Q2HRT PRN PRN Reason: Shortness of Breath or Wheeze Stop: 03/08/18 23:46 Lacosamide (Vimpat) 200 mg GT BID [facility] Stop: 03/09/18 08:59 Last Admin: 01/10/18 10:47 Dose: 200 mg Levothyroxine Sodium (Synthroid) 0.088 mg GT QDAC [facility] Stop: 03/09/18 07:29 Last Admin: 01/10/18 06:43 Dose: 0.088 mg Lisinopril (Zestril) 10 mg GT DAILY [facility] Stop: 03/09/18 08:59 Last Admin: 01/10/18 10:48 Dose: 10 mg Metronidazole (Flagyl) 500 mg PO TID [facility] Stop: 01/17/18 13:59 Multivitamins/Minerals (Theragran M) 15 ml GT DAILY [facility] Stop: 03/09/18 08:59 Last Admin: 01/10/18 10:49 Dose: 15 ml Oxybutynin Chloride (Ditropan) 10 mg GT DAILY [facility] Stop: 03/09/18 08:59 Last Admin: 01/10/18 10:48 Dose: 10 mg Valproate Sodium (Depakene) 500 mg GT 1800 [place]; Protocol Stop: 03/09/18 17:59 Last Admin: 01/09/18 17:27 Dose: 500 mg Valproate Sodium (Depakene) 250 mg GT 0600,1400 [place]; Protocol Stop: 03/09/18 05:59 Last Admin: 01/10/18 06:43 Dose: 250 mg General: weak, alert HEENT: NC/AT, PERRLA Neck: Supple Lungs: CTAB Cardiovascular: RRR, Normal S1, without murmur Abdomen: soft, non-tender, non-distended, positive bowel sound Extremities: excoriation Neurological: alert, unable to follow command Internal Medicine Assmt/Plan - Assessment Assessment: Severe dehydration Diarrhea Acute UTI dyslipidemia seizures hypothyroid hx hep b hx basal cell carcinoma flaccid neurogenic bladder profound intellectual disability - Plan Plan: ivf for hydration await for stool for cdiff and stool cultures iv flagyl to continue follow up labs in am continue current plan of care . Nutritional Asmnt/Malnutr-PDOC - Dietary Evaluation Malnutrition Findings (Please click <Entered> for more info): Nutritional Asmnt/Malnutrition Start: 01/08/18 17: 00 Text: Status: Complete Freq: Protocol: Document 01/08/18 17:00 LCHENG (Rec: 01/08/18 17:28 [email or web address] [email or web address]) Nutritional Asmnt/Malnutrition Patient General Information Nutritional Screening High Risk Diagnosis severe dehydration, UTI, diarrhea Pertinent Medical Hx/Surgical Hx dyslipidemia, seizures, hypothyroid, hep b, basal cell carcinoma, flaccid neurogenic bladder, cataracts, profound intellectual disability Subjective Information per H&P pt had diarrhea for one week before admission. Per nurse, pt has no more emesis today. Current Diet Order/ Nutrition Support Jevity 1.2 bolus 2 cans TID Pertinent Medications D5-0.9%ns, synthroid, theragran Pertinent Labs 01/07 Na 130, Cl 96, BUN 35, glucose 98, POC 115 Nutritional Hx/Data Height 5 ft 4 in Height (Calculated Centimeters) 162.6 Current Weight (lbs) 151 lb Weight (Calculated Kilograms) 68.5 Weight (Calculated Grams) 36510.4 Angie Body Weight 130 Body Mass Index (BMI) 25.9 Weight Status Overweight GI Symptoms GI Symptoms None Last BM not indicated Difficult in: None Skin Integrity/Comment: intact, reddened to buttocks Estimated Nutritional Goals BEE in Kcals: Using Current wt Calories/Kcals/Kg 23-27 Kcals Calculated 8691-4790 Protein: Using Current wt Protein g/k-1.2 monitor renal labs Protein Calculated 68-82 Fluid: ml 1564-1836ml (1ml/kcal) Nutritional Problem 1. Problem Problem altered nutrition related labs Etiology electrolytes/fluid imbalance Signs/Symptoms: Na 130, Cl 96, BUN 35 Malnutrition Alert Is there a minimum of two criteria No selected? Query Text:Check all the applicable criteria. A minimum of two criteria are recommended for diagnosis of either severe or non-severe malnutrition. Malnutrition Related to Morbid Obesity Malnutrition related to morbid obesity No Intervention/Recommendation Comments 1. Continue with current TF regimen. It provides 1422mkl total volume, 1706kcal, 79g protein, 1148ml free water, meeting 100% of nutritional needs 2. Monitor TF tolerance, wt, skin integrity and labs 3. F/U as high risk in 2-3 days, 01/10-01/11 Expected Outcomes/Goals Expected Outcomes/Goals 1. Pt to meet at least 75% of nutritional needs via nutrition support with tolerance 2. Wt stability, skin to remain intact, labs to approach WNL.
--- NOTE | 2018-01-10 18:36 | Discharge Summary ---
DATE OF DISCHARGE: 01/10/2018 DATE OF DISCHARGE: 01/10/2018. DISCHARGE DIAGNOSES: Severe dehydration, which has been treated; acute urinary tract infection; dyslipidemia; seizures; hypothyroidism; history of hepatitis B; history of basal cell carcinoma; flaccid neurogenic bladder and profound intellectual disability. HISTORY OF PRESENT ILLNESS: This is a 77-year-old male who is a resident of [facility], admitted to the telemetry unit due to a 1-day history of diarrhea. The patient was recently discharged from [facility] due to UTI and was given p.o. amoxicillin. The patient still remained with diarrhea. No reports of any fevers at the [facility] and [facility]. PHYSICAL EXAMINATION: GENERAL: The patient is well developed, well nourished, no apparent distress. VITAL SIGNS: Stable. HEENT: Head normocephalic and atraumatic. NECK: Supple. No mass. LUNGS: Clear bilaterally. HEART: Regular rate and rhythm. ABDOMEN: Soft and nontender. HOSPITAL COURSE: During hospital stay, the patient admitted to the telemetry unit. The patient was kept on IV fluids for hydration as well as IV Flagyl. The patient did not have any diarrheas during the hospital stay. For this reason, stool for C. diff could not be collected. The patient had a urine culture done, negative for any growth as well. Blood culture negative for any growth. The patient's WBCs were within normal limits and no episodes of any diarrhea. For this reason, the patient is stable for discharge. CONDITION UPON DISCHARGE: Fair. DISPOSITION: [facility]. [facility]# [id number]
[2018-01-11] MEDS: Levothyroxine 0.088 Mg Tab GT SCH (06:33)
[2018-01-11] MEDS: Multivitamin w/ Minerals 15 mL UDC GT SCH (08:41)
--- NOTE | 2018-01-11 15:07 | Discharge Summary ---
DATE OF DISCHARGE: 01/11/2018 CHIEF COMPLAINT: Diarrhea. FINAL DIAGNOSES: Diarrhea, which is resolved, severe dehydration, urinary tract infection, hypercholesterolemia, seizure, history of hepatitis B, basal cell carcinoma, neurogenic bladder, profound intellectual disability. HISTORY: This is a 77-year-old male with multiple medical problems, admitted from nursing facility secondary to increase diarrhea. The patient was noted to be dehydrated with urinary tract infection, admitted for further management. PHYSICAL EXAMINATION: VITAL SIGNS: Blood pressure 120/49, respirations 18, pulse is 80, temperature 98.3. GENERAL: Elderly male, appears stated age. NECK: Supple. No mass. LUNGS: Equal breath sounds, few rhonchi. HEART: Regular rate and rhythm. Systolic ejection murmur. ABDOMEN: Soft, globular. EXTREMITIES: Positive excoriation. NEUROLOGIC: Limited. HOSPITAL COURSE: He was admitted to medical floor, continue IV hydration. The patient's condition is improved. The patient ____ discharge was held secondary to ____ continue Flagyl. CONDITION ON DISCHARGE: Fair. DISCHARGE INSTRUCTIONS: The patient to continue current medical management. JOB# [id number]
[2018-01-12] MEDS: Levothyroxine 0.088 Mg Tab GT SCH (06:39)
[2018-01-12] MEDS ORDERED: Multivitamin w/ Minerals Tab GT SCH (09:00)
--- NOTE | 2018-01-13 00:50 | Discharge Summary ---
DATE OF DISCHARGE: 01/12/2018 CHIEF COMPLAINT: Diarrhea. FINAL DIAGNOSES: Diarrhea, which has resolved, urinary tract infection, severe dehydration, hypercholesterolemia, seizure, history of hepatitis B, basal cell carcinoma, neurogenic bladder and profound intellectual disability. HISTORY OF PRESENT ILLNESS: This is a 77-year-old male, well known to our service with multiple bouts of diarrhea after antibiotic regimen. The patient admitted for further management. PHYSICAL EXAMINATION: VITAL SIGNS: Blood pressure 130/80, respirations 18, pulse 67 and temperature 97.0. GENERAL: Elderly male, appears stated age. NECK: Supple. No mass. LUNGS: Equal breath sounds, otherwise clear to auscultation. HEART: Regular rate and rhythm without appreciable murmur. ABDOMEN: Soft, nontender. EXTREMITIES: No clubbing, cyanosis or edema. HOSPITAL COURSE: The patient admitted to telemetry floor. Continued on IV hydration and IV Flagyl. The patient's symptoms have improved. There was some issue with placement. CONDITION ON DISCHARGE: Fair. DISCHARGE INSTRUCTIONS: The patient to continue with current regimen at the correction facility. JOB# [id number]
== END 2018-01-12 11:13 | disposition home or self-care (01) | DRG 640 ==
LOC: ER 21:00 → TELE 23:45 → MSI 01-11 20:11
PROVIDERS: ADMIT Internal Medicine; ATTEND Internal Medicine
DX: E86.0 Dehydration (principal); R53.2 Functional quadriplegia; N39.0 Urinary tract infection, site not specified; B19.10 Unspecified viral hepatitis B without hepatic coma; F73 Profound intellectual disabilities; E87.1 Hypo-osmolality and hyponatremia; R19.7 Diarrhea, unspecified; E78.5 Hyperlipidemia, unspecified; R56.9 Unspecified convulsions; E03.9 Hypothyroidism, unspecified; N31.9 Neuromuscular dysfunction of bladder, unspecified; H26.9 Unspecified cataract; F03.90 Unspecified dementia, unspecified severity, without behavioral disturbance, psychotic disturbance, mood disturbance, and anxiety; E78.00 Pure hypercholesterolemia, unspecified; Z88.1 Allergy status to other antibiotic agents
CPT/HCPCS: 36415-UA; 80048-TC; 80053-TC; 81001-TC; 82948-90; 83605; 83690-TC; 83880-TC; 84484-TC; 85007-TC; 85025-TC; 85610-TC; 87086-90; 90799; 93005; 94760; J1956; Z7610

== ENCOUNTER 2018-01-24 21:51 | Inpatient (IN) | payer MEDICARE, MEDICAID ==
[2018-01-24 22:19] LABS: % BASOPHILS 0.5 % (0.0-2.0); % EOSINOPHILS 0.6 % (0.0-5.0); % LYMPHOCYTES 15.5 % (20.0-50.0); % MONOCYTES 9.7 % (2.0-10.0); % NEUTROPHILS 73.7 % (40.0-80.0); BASOPHILE ABSOLUTE 0.1 Th/cumm (0-0.2); EOSINOPHILE ABSOLUTE 0.1 Th/cmm (0.1-0.4); HEMATOCRIT 41.9 % (41.0-60); HEMOGLOBIN 14.1 gm/dL (12-16); LYMPHOCYTE ABSOLUTE 1.8 Th/cmm (1.5-3.0); MEAN CELL VOLUME 90.5 fl (80-99); MEAN CORPUSCULAR HEMOGLOBIN 30.5 pg (27.0-31.0); MEAN CORPUSCULAR HGB CONC 33.7 pg (28.0-36.0); MEAN PLATELET VOLUME 7.1 fl; MONOCYTE ABSOLUTE 1.1 Th/cmm (0.3-1.0); NEUTROPHILE ABSOLUTE 8.2 Th/cmm (1.8-8.0); PLATELET COUNT 272 Th/cmm (150-400); RED BLOOD COUNT 4.63 Mil/cmm (3.80-5.80); RED CELL DISTRIBUTION WIDTH 12.2 % (11.5-20.0); WHITE BLOOD COUNT 11.3 Th/cmm (4.8-10.8)
[2018-01-24 22:36] LABS: ALB/GLOB RATIO 1.1 (1.0-1.8); ALBUMIN 4.2 gm/dL (4.2-5.5); ALKALINE PHOSPHATASE 68 U/L (34-104); ANION GAP 13.2 (7.0-16.0); BILIRUBIN,TOTAL 0.6 mg/dL (0.3-1.0); BUN - UREA NITROGEN 26 mg/dL (7-25); CALCIUM SERUM 10.2 mg/dL (8.6-10.3); CARBON DIOXIDE 27.9 mEq/L (21.0-31.0); CHLORIDE 90 mEq/L (98-107); CREATININE - SERUM 0.8 mg/dL (0.7-1.3); GLUCOSE 107 mg/dL (70-105); LIPASE 12 U/L (11-82); POTASSIUM SERUM 4.1 mEq/L (3.5-5.1); SGOT 23 U/L (13-39); SGPT/ALT 17 U/L (7-52); SODIUM SERUM 127 mEq/L (136-145); TOTAL PROTEIN,SERUM 8.2 gm/dL (6.0-8.3)
[2018-01-24] MEDS ORDERED: Sodium Chloride 0.9% 1,000 ML IV ONE (22:41)
[2018-01-24 22:42] LABS: URINE SOURCE RANDOM
[2018-01-24 22:46] LABS: URINE BILIRUBIN NEGATIVE (NEGATIVE); URINE BLOOD SMALL (NEGATIVE); URINE CLARITY CLEAR (CLEAR); URINE COLOR YELLOW; URINE GLUCOSE (UA) NEGATIVE (NEGATIVE); URINE KETONE TRACE mg/dL (NEGATIVE); URINE LEUKOCYTE ESTERASE MODERATE (NEGATIVE); URINE MICROSCOPIC INDICATED? YES; URINE NITRATE NEGATIVE (NEGATIVE); URINE PROTEIN 100 mg/dL (NEGATIVE); URINE UROBILINOGEN 0.2 E.U./dL (0.2 - 1.0)
[2018-01-24 22:50] LABS: URINE BACTERIA 2+ /hpf (NONE SEEN); URINE EPITHELIAL CELLS OCCASIONAL /lpf (FEW)
[2018-01-24] MEDS ORDERED: metroNIDAZOLE 500mg/NS 100mL 500 MG/100 ML BAG IV ONE ×2 (22:56→23:16)
--- NOTE | 2018-01-24 22:59 | ED Physician Chart ---
ED Chief Complaint/HPI - Patient Information Date Seen:: 01/24/18 Time Seen:: 22:59 Chief Complaint:: Nausea, vomiting, diarrhea History of Present Illness:: 77 yo male was recently hospitalized at [facility] for dehydration and UTI. Patient was discharged to a board and care on 01/12/18. Patient was discharged with Amoxicillin. Today, patient had nausea, vomiting and diarrhea. Subsequently, patient was brought by caregiver to ER for further evaluation. Allergies:: Allergies Allergy/AdvReac Type Severity Reaction Status Date / Time cephalexin Allergy Verified 01/24/18 21:59 clindamycin Allergy Verified 01/24/18 21:59 Vitals:: Vital Signs - 8 hr 01/24/18 21:55 Temp 98.1 F HR 69 RR 18 BP 108/74 O2 Sat % 97 ED Review of Systems - Review of Systems General/Constitutional: No fever, No chills Skin: No bruising Head: No headache Eyes: No pain ENT: No nasal drainage Neck: No stiffness Cardio Vascular: No edema Pulmonary: No SOB GI: Nausea, Vomiting, Diarrhea Neurological: No focal symptoms Other: Limited review of systems due to mental disability ED Past Medical History - Past Medical History Past Medical History: Dyslipidemia, Seizures, Thyroid disorder, Other (profound intellectual disability, Hep B carrier, basal cell carcinoma, flaccid neurogenic bladder) Social History: Non Smoker, No Alcohol, No Drug Use Surgical History: PEG/GTube, other (suprapubic catheter) Psychiatricy History: Dementia Family Medical History - Family Member Mother History Unknown: Yes Ethnicity: Unknown ED Physical Exam - Physical Examination Other Gen/Cons comments:: Drowsy Other Head comments:: wearing helmet for head protection Eyes: PERRL Skin: No ecchymosis ENMT: Nasal exam nl Neck: No nuchal rigidity Respiratory: No Wheeze/Rhonchi/Rales Cardio Vascular: RRR, No murmur, gallop, rubs, NL S1 S2 GI: Nondistended Other GI comments:: G-tube intact Other comments:: Suprapubic stoma and catheter intact Other Neuro/Psych comments:: profound intellectual disability ED Labs/Radiology/EKG Results - Lab Results Results: Laboratory Tests 01/24/18 01/24/18 01/24/18 22:05 22:10 22:10 WBC 11.3 H RBC 4.63 Hgb 14.1 Hct 41.9 MCV 90.5 MCH 30.5 MCHC Differential 33.7 RDW 12.2 Plt Count 272 MPV 7.1 Neutrophils % 73.7 Lymphocytes % 15.5 L Monocytes % 9.7 Eosinophils % 0.6 Basophils % 0.5 Sodium 127 L Potassium 4.1 Chloride 90 L Carbon Dioxide 27.9 Anion Gap 13.2 BUN 26 H Creatinine 0.8 Est GFR ( Amer) TNP Est GFR (Non-Af Amer) TNP BUN/Creatinine Ratio 32.5 Glucose 107 H Calcium 10.2 Total Bilirubin 0.6 AST 23 ALT 17 Alkaline Phosphatase 68 Troponin I B-Natriuretic Peptide Total Protein 8.2 Albumin 4.2 Globulin 4.0 Albumin/Globulin Ratio 1.1 Lipase 12 Urine Source RANDOM Urine Color YELLOW Urine Clarity CLEAR Urine pH 6.0 Ur Specific [place] >= 1.030 Urine Protein 100 H Urine Glucose (UA) NEGATIVE Urine Ketones TRACE Urine Blood SMALL H Urine Nitrate NEGATIVE Urine Bilirubin NEGATIVE Urine Urobilinogen 0.2 Ur Leukocyte Esterase MODERATE H Urine RBC 2-5 H Urine WBC 6-10 Ur Epithelial Cells OCCASIONAL Urine Bacteria 2+ H 01/24/18 01/24/18 22:10 22:10 WBC RBC Hgb Hct MCV MCH MCHC Differential RDW Plt Count MPV Neutrophils % Lymphocytes % Monocytes % Eosinophils % Basophils % Sodium Potassium Chloride Carbon Dioxide Anion Gap BUN Creatinine Est GFR ( Amer) Est GFR (Non-Af Amer) BUN/Creatinine Ratio Glucose Calcium Total Bilirubin AST ALT Alkaline Phosphatase Troponin I < 0.01 L B-Natriuretic Peptide 65.9 Total Protein Albumin Globulin Albumin/Globulin Ratio Lipase Urine Source Urine Color Urine Clarity Urine pH Ur Specific [place] Urine Protein Urine Glucose (UA) Urine Ketones Urine Blood Urine Nitrate Urine Bilirubin Urine Urobilinogen Ur Leukocyte Esterase Urine RBC Urine WBC Ur Epithelial Cells Urine Bacteria Laboratory Last Values WBC 11.3 Th/cmm (4.8-10.8) H 01/24/18 22:10 RBC 4.63 Mil/cmm (3.80-5.80) 01/24/18 22:10 Hgb 14.1 gm/dL (12-16) 01/24/18 22:10 Hct 41.9 % (41.0-60) 01/24/18 22:10 MCV 90.5 fl (80-99) 01/24/18 22:10 MCH 30.5 pg (27.0-31.0) 01/24/18 22:10 MCHC Differential 33.7 pg (28.0-36.0) 01/24/18 22:10 RDW 12.2 % (11.5-20.0) 01/24/18 22:10 Plt Count 272 Th/cmm (150-400) 01/24/18 22:10 MPV 7.1 fl 01/24/18 22:10 Neutrophils % 73.7 % (40.0-80.0) 01/24/18 22:10 Lymphocytes % 15.5 % (20.0-50.0) L 01/24/18 22:10 Monocytes % 9.7 % (2.0-10.0) 01/24/18 22:10 Eosinophils % 0.6 % (0.0-5.0) 01/24/18 22:10 Basophils % 0.5 % (0.0-2.0) 01/24/18 22:10 Sodium 127 mEq/L (136-145) L 01/24/18 22:10 Potassium 4.1 mEq/L (3.5-5.1) 01/24/18 22:10 Chloride 90 mEq/L (98-107) L 01/24/18 22:10 Carbon Dioxide 27.9 mEq/L (21.0-31.0) 01/24/18 22:10 Anion Gap 13.2 (7.0-16.0) 01/24/18 22:10 BUN 26 mg/dL (7-25) H 01/24/18 22:10 Creatinine 0.8 mg/dL (0.7-1.3) 01/24/18 22:10 Est GFR ( Amer) TNP 01/24/18 22:10 Est GFR (Non-Af Amer) TNP 01/24/18 22:10 BUN/Creatinine Ratio 32.5 01/24/18 22:10 Glucose 107 mg/dL (70-105) H 01/24/18 22:10 Whole Bld Lactic Acid 0.92 mmol/L (0.60-1.99) 01/24/18 22:10 Calcium 10.2 mg/dL (8.6-10.3) 01/24/18 22:10 Total Bilirubin 0.6 mg/dL (0.3-1.0) 01/24/18 22:10 AST 23 U/L (13-39) 01/24/18 22:10 ALT 17 U/L (7-52) 01/24/18 22:10 Alkaline Phosphatase 68 U/L (34-104) 01/24/18 22:10 Troponin I < 0.01 ng/mL (0.01-0.05) L 01/24/18 22:10 B-Natriuretic Peptide 65.9 pg/mL (5.0-100.0) 01/24/18 22:10 Total Protein 8.2 gm/dL (6.0-8.3) 01/24/18 22:10 Albumin 4.2 gm/dL (4.2-5.5) 01/24/18 22:10 Globulin 4.0 gm/dL 01/24/18 22:10 Albumin/Globulin Ratio 1.1 (1.0-1.8) 01/24/18 22:10 Lipase 12 U/L (11-82) 01/24/18 22:10 Urine Source RANDOM 01/24/18 22:05 Urine Color YELLOW 01/24/18 22:05 Urine Clarity CLEAR (CLEAR) 01/24/18 22:05 Urine pH 6.0 (4.6 - 8.0) 01/24/18 22:05 Ur Specific [place] >= 1.030 (1.005-1.030) 01/24/18 22:05 Urine Protein 100 mg/dL (NEGATIVE) H 01/24/18 22:05 Urine Glucose (UA) NEGATIVE mg/dL (NEGATIVE) 01/24/18 22:05 Urine Ketones TRACE mg/dL (NEGATIVE) 01/24/18 22:05 Urine Blood SMALL (NEGATIVE) H 01/24/18 22:05 Urine Nitrate NEGATIVE (NEGATIVE) 01/24/18 22:05 Urine Bilirubin NEGATIVE (NEGATIVE) 01/24/18 22:05 Urine Urobilinogen 0.2 E.U./dL (0.2 - 1.0) 01/24/18 22:05 Ur Leukocyte Esterase MODERATE (NEGATIVE) H 01/24/18 22:05 Urine RBC 2-5 /hpf (0-5) H 01/24/18 22:05 Urine WBC 6-10 /hpf (0-5) 01/24/18 22:05 Ur Epithelial Cells OCCASIONAL /lpf (FEW) 01/24/18 22:05 Urine Bacteria 2+ /hpf (NONE SEEN) H 01/24/18 22:05 - Radiology Results Results: CXR: Increased interstitial markings - EKG Interpretations EKG Time:: 22:12 Rate & Rhythm: 66 bpm, sinus rhythm [place]: normal P axis Intervals: MI 285, QRS 94, QTc 420 ED Assessment - Assessment General Assessment: Urinary tract infection Leukocytosis Dehydration Hyponatremia Mental retardation G-tube Suprapubic catheter for flaccid neurogenic bladder Assessment/Comments:: CBC, CMP, Trop I, BNP, lipase, UA CXR, EKG NS 1L IV bolus Flagyl 500mg IV Admit to med surg ED Septic Shock - . Is Septic Shock (SBP<90, OR Lactate>4 mmol\L) present?: No - <6hrs of presentation: Vital Signs: Vital Signs - 8 hr 01/24/18 21:55 Temp 98.1 F HR 69 RR 18 BP 108/74 O2 Sat % 97 ED Reassessment (Disposition) - Reassessment Reassessment Condition:: Improved - Patient Disposition Discharge/Transfer:: Acute Care w/in this hosp Admitting Medical Physician:: Nito Vasquez
[2018-01-24] MEDS ORDERED: Albuterol Nebulizer 2.5mg/3mL HHN PRN (23:06)
[2018-01-24] MEDS ORDERED: Ipratropium Neb 0.5 mg/2.5 mL UD HHN PRN (23:06)
[2018-01-24] MEDS ORDERED: Diphenoxylate/Atropine 2.5mg Tab PO PRN (23:08)
[2018-01-25] MEDS ORDERED: Levofloxacin 500mg/100mL 500 MG/100 ML BAG IV SCH (01:00)
[2018-01-25] MEDS: D5-0.45NS 1,000 ML IV SCH ×2 (01:25→12:43)
[2018-01-25] MEDS: metroNIDAZOLE 500mg/NS 100mL 500 MG/100 ML BAG IV SCH ×3 (04:48→20:28)
--- NOTE | 2018-01-25 07:59 | Diagnostic Imaging Report ---
CHEST X-RAY: AP view INDICATION: Shortness of breath COMPARISON: None FINDINGS: Increased interstitial lung markings are noted particularly of the lung bases. There is mild elevation of the left hemidiaphragm. No focal consolidation or effusions. Mild cardiomegaly is noted with atherosclerosis. Degenerative changes of the spine are noted. IMPRESSION: Increased interstitial lung markings particularly of the lung bases. Although findings may be chronic, underlying interstitial infiltrates of the lung bases cannot be excluded. Clinical correlation is recommended. Mild cardiomegaly with atherosclerosis.
[2018-01-25] MEDS: Multivitamin w/ Minerals Tab GT SCH (08:12)
[2018-01-25] MEDS: Levothyroxine 0.088 Mg Tab GT SCH (08:12)
[2018-01-25] MEDS ORDERED: Lacosamide 10 mg/mL 10mL UDC GT SCH (09:00)
[2018-01-25] MEDS: Triamcinolone Acet 0.025% Cream 15 gm TP SCH ×2 (09:06→16:43)
--- NOTE | 2018-01-25 14:24 | History & Physical ---
ADMIT DATE: 01/25/2018 INTERNAL MEDICINE HISTORY AND PHYSICAL CHIEF COMPLAINT: Generalized weakness. HISTORY OF PRESENT ILLNESS: This is a 77-year-old man with history of seizure disorder and intellectual disability, mental retardation, hepatitis B, admitted from nursing facility secondary to not feeling well. The patient was brought in the ER, noted to be dehydrated and with urinary tract infection. PAST MEDICAL HISTORY: As mentioned in history of present illness. PAST SURGICAL HISTORY: Unable to obtain from the patient. ALLERGIES: KEFLEX AND CLINDAMYCIN. MEDICATIONS: Tylenol, calcium, albuterol, Atrovent, Zofran, Depakote. FAMILY HISTORY: Noncontributory. SOCIAL HISTORY: The patient is a detention patient requiring 24-hour total care. REVIEW OF SYSTEMS: This is limited secondary to the patient's current mental status. We will try to obtain more detailed review of system at a later date by talking to the family members, ____ outpatient physical therapist assistant at [phone]. ____ embedded case manager at [phone]. PHYSICAL EXAMINATION: VITAL SIGNS: Blood pressure 140/51, respirations 18, pulse 81, temperature 97.0. GENERAL: Elderly male, appears chronically ill. NECK: Supple. No mass. LUNGS: Equal breath sounds, a few rhonchi. HEART: Regular rate and rhythm with systolic ejection murmur. ABDOMEN: Soft, globular. EXTREMITIES: Positive excoriation. LABORATORY DATA: WBC 11, hemoglobin 14, platelets 270. Sodium 127, potassium 4.1, BUN 26, creatinine 0.8. UA showed 10 WBC, many bacteria. ASSESSMENT AND PLAN: Urinary tract infection, nausea, vomiting, abdominal pain, diarrhea, mental retardation, leukocytosis, hyponatremia, renal insufficiency, seizure, hypercholesterolemia, hepatitis B. We will continue the patient on IV antibiotic. Apparently, Cipro as well as Flagyl. We will follow the patient's culture results. We will correct the patient's electrolyte imbalance ____ culture. We will monitor the patient closely. JOB# [id number]
[2018-01-25] MEDS: Ciprofloxacin 200mg Premix PB 200 MG/100 ML BAG IV SCH (21:20)
[2018-01-26] MEDS: metroNIDAZOLE 500mg/NS 100mL 500 MG/100 ML BAG IV SCH ×3 (05:00→20:34)
[2018-01-26] MEDS: D5-0.45NS 1,000 ML IV SCH ×2 (05:17→20:36)
[2018-01-26 06:21] LABS: % BASOPHILS 0.3 % (0.0-2.0); % EOSINOPHILS 1.4 % (0.0-5.0); % LYMPHOCYTES 23.7 % (20.0-50.0); % MONOCYTES 10.4 % (2.0-10.0); % NEUTROPHILS 64.2 % (40.0-80.0); EOSINOPHILE ABSOLUTE 0.1 Th/cmm (0.1-0.4); HEMATOCRIT 38.3 % (41.0-60); HEMOGLOBIN 12.9 gm/dL (12-16); LYMPHOCYTE ABSOLUTE 1.7 Th/cmm (1.5-3.0); MEAN CELL VOLUME 91.5 fl (80-99); MEAN CORPUSCULAR HEMOGLOBIN 30.9 pg (27.0-31.0); MEAN CORPUSCULAR HGB CONC 33.8 pg (28.0-36.0); MEAN PLATELET VOLUME 7.2 fl; MONOCYTE ABSOLUTE 0.7 Th/cmm (0.3-1.0); NEUTROPHILE ABSOLUTE 4.5 Th/cmm (1.8-8.0); PLATELET COUNT 212 Th/cmm (150-400); RED BLOOD COUNT 4.18 Mil/cmm (3.80-5.80); RED CELL DISTRIBUTION WIDTH 12.2 % (11.5-20.0)
[2018-01-26] MEDS: Levothyroxine 0.088 Mg Tab GT SCH (06:34)
[2018-01-26 06:40] LABS: ANION GAP 9.5 (7.0-16.0); BUN - UREA NITROGEN 17 mg/dL (7-25); CALCIUM SERUM 9.2 mg/dL (8.6-10.3); CARBON DIOXIDE 29.5 mEq/L (21.0-31.0); CHLORIDE 95 mEq/L (98-107); CREATININE - SERUM 0.7 mg/dL (0.7-1.3); GLUCOSE 92 mg/dL (70-105); SODIUM SERUM 130 mEq/L (136-145)
[2018-01-26] MEDS: Multivitamin w/ Minerals Tab GT SCH (08:32)
[2018-01-26] MEDS: Ciprofloxacin 200mg Premix PB 200 MG/100 ML BAG IV SCH ×2 (08:33→21:30)
[2018-01-26] MEDS: Triamcinolone Acet 0.025% Cream 15 gm TP SCH ×2 (08:47→17:16)
--- NOTE | 2018-01-26 12:42 | Internal Medicine Prog Note ---
Internal Medicine Subjective - Subjective Patient seen and examined:: with staff, chart reviewed Patient is:: awake, non-verbal, non-interactive Patient Complaints of:: congestion Per staff patient has:: no adverse event, no episodes of fall, poor appetite, confused, tolerating meds Internal Medicine Objective - Results Result Diagrams: 01/26/18 05:55 01/26/18 05:55 Recent Labs: Laboratory Last Values WBC 7.0 Th/cmm (4.8-10.8) 01/26/18 05:55 RBC 4.18 Mil/cmm (3.80-5.80) 01/26/18 05:55 Hgb 12.9 gm/dL (12-16) 01/26/18 05:55 Hct 38.3 % (41.0-60) L 01/26/18 05:55 MCV 91.5 fl (80-99) 01/26/18 05:55 MCH 30.9 pg (27.0-31.0) 01/26/18 05:55 MCHC Differential 33.8 pg (28.0-36.0) 01/26/18 05:55 RDW 12.2 % (11.5-20.0) 01/26/18 05:55 Plt Count 212 Th/cmm (150-400) 01/26/18 05:55 MPV 7.2 fl 01/26/18 05:55 Neutrophils % 64.2 % (40.0-80.0) 01/26/18 05:55 Lymphocytes % 23.7 % (20.0-50.0) 01/26/18 05:55 Monocytes % 10.4 % (2.0-10.0) H 01/26/18 05:55 Eosinophils % 1.4 % (0.0-5.0) 01/26/18 05:55 Basophils % 0.3 % (0.0-2.0) 01/26/18 05:55 Sodium 130 mEq/L (136-145) L 01/26/18 05:55 Potassium 4.0 mEq/L (3.5-5.1) 01/26/18 05:55 Chloride 95 mEq/L (98-107) L 01/26/18 05:55 Carbon Dioxide 29.5 mEq/L (21.0-31.0) 01/26/18 05:55 Anion Gap 9.5 (7.0-16.0) 01/26/18 05:55 BUN 17 mg/dL (7-25) 01/26/18 05:55 Creatinine 0.7 mg/dL (0.7-1.3) 01/26/18 05:55 Est GFR ( Amer) TNP 01/26/18 05:55 Est GFR (Non-Af Amer) TNP 01/26/18 05:55 BUN/Creatinine Ratio 24.3 01/26/18 05:55 Glucose 92 mg/dL (70-105) 01/26/18 05:55 Whole Bld Lactic Acid 0.92 mmol/L (0.60-1.99) 01/24/18 22:10 Calcium 9.2 mg/dL (8.6-10.3) 01/26/18 05:55 Total Bilirubin 0.6 mg/dL (0.3-1.0) 01/24/18 22:10 AST 23 U/L (13-39) 01/24/18 22:10 ALT 17 U/L (7-52) 01/24/18 22:10 Alkaline Phosphatase 68 U/L (34-104) 01/24/18 22:10 Ammonia 45 umol/L (16-53) 01/26/18 05:55 Troponin I < 0.01 ng/mL (0.01-0.05) L 01/24/18 22:10 B-Natriuretic Peptide 152.0 pg/mL (5.0-100.0) H 01/26/18 05:55 Total Protein 8.2 gm/dL (6.0-8.3) 01/24/18 22:10 Albumin 4.2 gm/dL (4.2-5.5) 01/24/18 22:10 Globulin 4.0 gm/dL 01/24/18 22:10 Albumin/Globulin Ratio 1.1 (1.0-1.8) 01/24/18 22:10 Lipase 12 U/L (11-82) 01/24/18 22:10 Urine Source RANDOM 01/24/18 22:05 Urine Color YELLOW 01/24/18 22:05 Urine Clarity CLEAR (CLEAR) 01/24/18 22:05 Urine pH 6.0 (4.6 - 8.0) 01/24/18 22:05 Ur Specific [place] >= 1.030 (1.005-1.030) 01/24/18 22:05 Urine Protein 100 mg/dL (NEGATIVE) H 01/24/18 22:05 Urine Glucose (UA) NEGATIVE mg/dL (NEGATIVE) 01/24/18 22:05 Urine Ketones TRACE mg/dL (NEGATIVE) 01/24/18 22:05 Urine Blood SMALL (NEGATIVE) H 01/24/18 22:05 Urine Nitrate NEGATIVE (NEGATIVE) 01/24/18 22:05 Urine Bilirubin NEGATIVE (NEGATIVE) 01/24/18 22:05 Urine Urobilinogen 0.2 E.U./dL (0.2 - 1.0) 01/24/18 22:05 Ur Leukocyte Esterase MODERATE (NEGATIVE) H 01/24/18 22:05 Urine RBC 2-5 /hpf (0-5) H 01/24/18 22:05 Urine WBC 6-10 /hpf (0-5) 01/24/18 22:05 Ur Epithelial Cells OCCASIONAL /lpf (FEW) 01/24/18 22:05 Urine Bacteria 2+ /hpf (NONE SEEN) H 01/24/18 22:05 - Physical Exam Vitals and I&O: Vital Signs Temp 97.2 F 01/26/18 12:07 Pulse 64 01/26/18 12:07 Resp 18 01/26/18 12:07 BP 142/53 01/26/18 12:07 Pulse Ox 99 01/26/18 12:07 Intake & Output 01/25/18 01/26/18 01/26/18 18:59 06:59 18:59 Intake Total 1004 1900 Output Total 900 Balance 1004 1000 Weight (lbs) 69.853 kg Intake: Intake, IV Amount 1004 1300 Ciprofloxacin 200mg 100 Premix PB 200 mg In 100 ml @ 100 mls/hr IV Q12HR [facility] Rx#:[id number] D5-0.45NS 1,000 ml @ 80 904 1000 mls/hr IV .[id number] [facility] Rx #:[id number] metroNIDAZOLE 500mg/NS 100 200 100mL 500 mg In 100 ml @ 100 mls/hr IV Q8HR [facility] Rx #:[id number] Tube Feeding 480 Other 120 Output: Urine 900 Other: Weight Source Bedscale Active Medications: Current Medications Acetaminophen (Tylenol 650mg/20.3ml Suspension) 650 mg GT Q8H PRN PRN Reason: Pain or Fever >101 Stop: 03/26/18 07:10 Albuterol Sulfate (Albuterol 2.5mg/3ml Neb Ud) 2.5 mg HHN Q2HRT PRN PRN Reason: Shortness of Breath or Wheeze Stop: 03/25/18 23:05 Bisacodyl (Dulcolax 10 Mg Supp) 10 mg RC Q48H PRN PRN Reason: Constipation Stop: 03/25/18 23:03 Calcium Carbonate (Tums) 1,250 mg GT DAILY [facility] Stop: 03/26/18 08:59 Last Admin: 01/26/18 08:29 Dose: 1,250 mg Cholecalciferol (Vitamin D3) 500 iu GT BID [facility] Stop: 03/26/18 08:59 Last Admin: 01/26/18 08:31 Dose: 500 iu Diphenhydramine HCl (Benadryl) 25 mg GT PRN PRN PRN Reason: Rash Stop: 03/25/18 23:03 Diphenoxylate HCl/Atropine (Lomotil) 2 tab PO QID PRN PRN Reason: Diarrhea Stop: 03/25/18 23:07 Famotidine (Pepcid) 10 mg PO BID [facility] Stop: 03/26/18 08:59 Last Admin: 01/26/18 08:32 Dose: 10 mg Dextrose/Sodium Chloride (D5-0.45ns) 1,000 mls @ 80 mls/hr IV .[id number] [facility] Stop: 03/25/18 23:14 Last Admin: 01/26/18 05:17 Dose: 80 mls/hr Metronidazole (Flagyl) 500 mg in 100 mls @ 100 mls/hr IV Q8HR [facility] Stop: 03/26/18 04:59 Last Infusion: 01/26/18 06:00 Dose: Infused Ciprofloxacin (Cipro 200mg Premix Pb) 200 mg in 100 mls @ 100 mls/hr IV Q12HR [facility] Stop: 03/26/18 20:59 Last Admin: 01/26/18 08:33 Dose: 100 mls/hr Ipratropium [place] (Atrovent Neb 0.5mg/2.5ml) 0.5 mg HHN Q2HRT PRN PRN Reason: Shortness of Breath or Wheeze Stop: 03/25/18 23:05 Lacosamide (Vimpat) 200 mg GT BID [facility] Stop: 03/26/18 08:59 Last Admin: 01/26/18 08:31 Dose: 200 mg Levothyroxine Sodium (Synthroid) 0.088 mg GT QDAC [facility] Stop: 03/26/18 07:29 Last Admin: 01/26/18 06:34 Dose: 0.088 mg Lisinopril (Zestril) 10 mg GT DAILY [facility] Stop: 03/26/18 08:59 Last Admin: 01/26/18 08:31 Dose: 10 mg Lorazepam (Ativan) 1 mg IV Q4H PRN; Protocol PRN Reason: Seizure Stop: 03/25/18 23:05 Mupirocin (Bactroban Oint) 1 appl NS BID [facility] Stop: 01/31/18 09:01 Mupirocin (Bactroban Oint) 1 appl TP BID [facility] Stop: 03/27/18 16:59 Ondansetron HCl (Zofran) 4 mg IV Q8H PRN PRN Reason: Nausea / Vomiting Stop: 03/25/18 23:07 Oxybutynin Chloride (Ditropan) 10 mg GT DAILY [facility] Stop: 03/26/18 08:59 Last Admin: 01/26/18 08:31 Dose: 10 mg Triamcinolone Acetonide (Kenalog 0.025% Cre) 1 appl TP BID [facility] Stop: 03/26/18 08:59 Last Admin: 01/26/18 08:47 Dose: 1 appl Valproate Sodium (Depakene) 500 mg GT DAILY@1800 [facility]; Protocol Stop: 03/26/18 17:59 Last Admin: 01/25/18 17:06 Dose: 500 mg Valproate Sodium (Depakene) 250 mg GT BID@0600,1400 [facility]; Protocol Stop: 03/26/18 05:59 Last Admin: 01/26/18 06:34 Dose: 250 mg General: congested, demented HEENT: NC/AT, PERRLA Neck: Supple, No JVD, No LAD, deformity Lungs: congested, rales, ronchi Cardiovascular: RRR, Normal S1, Normal S2, with murmur Abdomen: soft, non-distended Extremities: excoriation, contracture Neurological: no change Internal Medicine Assmt/Plan - Assessment Assessment: ASSESSMENT AND PLAN: Urinary tract infection, nausea, vomiting, abdominal pain, diarrhea, mental retardation, leukocytosis, hyponatremia, renal insufficiency, seizure, hypercholesterolemia, hepatitis B. We will continue the patient on IV antibiotic. on Cipro as well as Flagyl. We will follow the patient's culture results. We will correct the patient's electrolyte - Plan Plan: cpm Nutritional Asmnt/Malnutr-PDOC - Dietary Evaluation Malnutrition Findings (Please click <Entered> for more info): Nutritional Asmnt/Malnutrition Start: 01/25/18 11: 08 Text: Status: Complete Freq: Protocol: Document 01/25/18 11:08 BETH (Rec: 01/25/18 11:19 MMSANAZ LEBLANC- [email or web address]) Nutritional Asmnt/Malnutrition Patient General Information Nutritional Screening High Risk Consult Diagnosis UTI, Generalized weakness, dehydration Pertinent Medical Hx/Surgical Hx PROFOUND INTELLECTUAL DISABILITY, HYPERCHOLESTEROLEMIA, HYPOTHYROIDISM, SEIZURES, 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 Current Tube feeding regimen providing 1422 ml fluid, 1706 kcal, 79gm protein, 1147 ml free water. Patient noted to have mild temporal wasting. Spoke with RN at patient's bedside; states he is tolerating bolus feedings well. Current Diet Order/ Nutrition Support Jevity 1.2 Bolus Feedings, 2 cans TID at 6:30am, 1:30pm, 5: 30pm Patient / S.O Not Indicated Pertinent Medications Dulcolax, Tums, Vitamin D3, D5 -0.45 NS @80ml/hr, Pepcid, Synthroid, Flagyl, Zofran Pertinent Labs (01/24) Na 127, BUN 26 Nutritional Hx/Data Height 1.63 m Height (Calculated Centimeters) 162.6 Current Weight (lbs) 69.853 kg Weight (Calculated Kilograms) 69.9 Weight (Calculated Grams) 23356.2 [place] Body Weight 130 % [place] Body Weight 118 Body Mass Index (BMI) 26.4 Recent Weight Change No Weight Status Overweight GI Symptoms GI Symptoms None Last BM None indicated in EMR Difficult in: None Food Allergies No Cultural/Ethnic/Nondenominational Belief None indicated Usual diet at home Bolus tube feedings Skin Integrity/Comment: Emile 11, pressure area on Sacrum Estimated Nutritional Goals BEE in Kcals: Using Current wt Calories/Kcals/Kg (25-30 kcal/kg) Using Current body weight 70kg Kcals Calculated ~8256-9591 kcal/day Protein: Using Current wt Protein g/k-1.2 gm/kg using CBW - Sacral redness Protein Calculated ~70-85 gm/day Fluid: ml ~3098-7243 ml/day (1 ml/kcal) Nutritional Problem 1. Problem Problem Altered nutrition related lab values related to Etiology electrolyte imbalance aeb Signs/Symptoms: Na 127 Intervention/Recommendation Comments 1. Continue current tube feeding regimen as it is adequate to meet nutrient needs. 2. If Na remains low, consider modifying to a more concentrated formula such as TwoCal (would need 900ml/day to meet nutrient need). Expected Outcomes/Goals Expected Outcomes/Goals Tube feeding to meet >75% of nutrient needs, weight stable, nutrition related labs / Na level normalize. F/U MR in 3-5 days (01/28-)
[2018-01-27] MEDS: metroNIDAZOLE 500mg/NS 100mL 500 MG/100 ML BAG IV SCH ×2 (05:02→12:17)
[2018-01-27] MEDS: Levothyroxine 0.088 Mg Tab GT SCH (06:40)
[2018-01-27] MEDS: Multivitamin w/ Minerals Tab GT SCH (08:39)
[2018-01-27] MEDS ORDERED: Probiotic Screen MC PRN (08:45)
[2018-01-27] MEDS: Ciprofloxacin 200mg Premix PB 200 MG/100 ML BAG IV SCH ×2 (08:46→22:23)
[2018-01-27] MEDS: Triamcinolone Acet 0.025% Cream 15 gm TP SCH ×2 (09:21→17:40)
[2018-01-27] MEDS: Lactobacillus Rhamnosus GG 15 Billion CFU CAP.SPRINK PO SCH (12:18)
--- NOTE | 2018-01-27 12:46 | Internal Medicine Prog Note ---
Internal Medicine Subjective - Subjective Service Date: 01/27/18 Patient is:: awake, non-verbal, non-interactive Patient Complaints of:: congestion Per staff patient has:: no adverse event, no episodes of fall, poor appetite, confused, tolerating meds Internal Medicine Objective - Results Result Diagrams: 01/26/18 05:55 01/26/18 05:55 Recent Labs: Laboratory Last Values WBC 7.0 Th/cmm (4.8-10.8) 01/26/18 05:55 RBC 4.18 Mil/cmm (3.80-5.80) 01/26/18 05:55 Hgb 12.9 gm/dL (12-16) 01/26/18 05:55 Hct 38.3 % (41.0-60) L 01/26/18 05:55 MCV 91.5 fl (80-99) 01/26/18 05:55 MCH 30.9 pg (27.0-31.0) 01/26/18 05:55 MCHC Differential 33.8 pg (28.0-36.0) 01/26/18 05:55 RDW 12.2 % (11.5-20.0) 01/26/18 05:55 Plt Count 212 Th/cmm (150-400) 01/26/18 05:55 MPV 7.2 fl 01/26/18 05:55 Neutrophils % 64.2 % (40.0-80.0) 01/26/18 05:55 Lymphocytes % 23.7 % (20.0-50.0) 01/26/18 05:55 Monocytes % 10.4 % (2.0-10.0) H 01/26/18 05:55 Eosinophils % 1.4 % (0.0-5.0) 01/26/18 05:55 Basophils % 0.3 % (0.0-2.0) 01/26/18 05:55 Sodium 130 mEq/L (136-145) L 01/26/18 05:55 Potassium 4.0 mEq/L (3.5-5.1) 01/26/18 05:55 Chloride 95 mEq/L (98-107) L 01/26/18 05:55 Carbon Dioxide 29.5 mEq/L (21.0-31.0) 01/26/18 05:55 Anion Gap 9.5 (7.0-16.0) 01/26/18 05:55 BUN 17 mg/dL (7-25) 01/26/18 05:55 Creatinine 0.7 mg/dL (0.7-1.3) 01/26/18 05:55 Est GFR ( Amer) TNP 01/26/18 05:55 Est GFR (Non-Af Amer) TNP 01/26/18 05:55 BUN/Creatinine Ratio 24.3 01/26/18 05:55 Glucose 92 mg/dL (70-105) 01/26/18 05:55 Whole Bld Lactic Acid 0.92 mmol/L (0.60-1.99) 01/24/18 22:10 Calcium 9.2 mg/dL (8.6-10.3) 01/26/18 05:55 Total Bilirubin 0.6 mg/dL (0.3-1.0) 01/24/18 22:10 AST 23 U/L (13-39) 01/24/18 22:10 ALT 17 U/L (7-52) 01/24/18 22:10 Alkaline Phosphatase 68 U/L (34-104) 01/24/18 22:10 Ammonia 45 umol/L (16-53) 01/26/18 05:55 Troponin I < 0.01 ng/mL (0.01-0.05) L 01/24/18 22:10 B-Natriuretic Peptide 152.0 pg/mL (5.0-100.0) H 01/26/18 05:55 Total Protein 8.2 gm/dL (6.0-8.3) 01/24/18 22:10 Albumin 4.2 gm/dL (4.2-5.5) 01/24/18 22:10 Globulin 4.0 gm/dL 01/24/18 22:10 Albumin/Globulin Ratio 1.1 (1.0-1.8) 01/24/18 22:10 Lipase 12 U/L (11-82) 01/24/18 22:10 Urine Source RANDOM 01/24/18 22:05 Urine Color YELLOW 01/24/18 22:05 Urine Clarity CLEAR (CLEAR) 01/24/18 22:05 Urine pH 6.0 (4.6 - 8.0) 01/24/18 22:05 Ur Specific [place] >= 1.030 (1.005-1.030) 01/24/18 22:05 Urine Protein 100 mg/dL (NEGATIVE) H 01/24/18 22:05 Urine Glucose (UA) NEGATIVE mg/dL (NEGATIVE) 01/24/18 22:05 Urine Ketones TRACE mg/dL (NEGATIVE) 01/24/18 22:05 Urine Blood SMALL (NEGATIVE) H 01/24/18 22:05 Urine Nitrate NEGATIVE (NEGATIVE) 01/24/18 22:05 Urine Bilirubin NEGATIVE (NEGATIVE) 01/24/18 22:05 Urine Urobilinogen 0.2 E.U./dL (0.2 - 1.0) 01/24/18 22:05 Ur Leukocyte Esterase MODERATE (NEGATIVE) H 01/24/18 22:05 Urine RBC 2-5 /hpf (0-5) H 01/24/18 22:05 Urine WBC 6-10 /hpf (0-5) 01/24/18 22:05 Ur Epithelial Cells OCCASIONAL /lpf (FEW) 01/24/18 22:05 Urine Bacteria 2+ /hpf (NONE SEEN) H 01/24/18 22:05 - Physical Exam Vitals and I&O: Vital Signs Temp 97.0 F 01/27/18 11:32 Pulse 61 01/27/18 11:32 Resp 18 01/27/18 11:32 BP 127/44 01/27/18 11:32 Pulse Ox 100 01/27/18 11:32 Intake & Output 01/26/18 01/27/18 01/27/18 18:59 06:59 18:59 Intake Total 2360 1602 100 Output Total 1200 1350 Balance 1160 252 100 Weight (lbs) 154 lb 158 lb 158 lb Intake: Intake, IV Amount 1200 1052 100 Ciprofloxacin 200mg 100 100 100 Premix PB 200 mg In 100 ml @ 100 mls/hr IV Q12HR [facility] Rx#:[id number] D5-0.45NS 1,000 ml @ 80 1000 752 mls/hr IV .[id number] [facility] Rx #:[id number] metroNIDAZOLE 500mg/NS 100 200 100mL 500 mg In 100 ml @ 100 mls/hr IV Q8HR [facility] Rx #:[id number] Oral 0 Tube Feeding 960 450 Other 200 100 Output: Urine 1200 1350 Other: # Bowel Movements 1 Stool Characteristics Soft Soft Weight Source Bedscale Bedscale Bedscale Active Medications: Current Medications Acetaminophen (Tylenol 650mg/20.3ml Suspension) 650 mg GT Q8H PRN PRN Reason: Pain or Fever >101 Stop: 03/26/18 07:10 Albuterol Sulfate (Albuterol 2.5mg/3ml Neb Ud) 2.5 mg HHN Q2HRT PRN PRN Reason: Shortness of Breath or Wheeze Stop: 03/25/18 23:05 Bisacodyl (Dulcolax 10 Mg Supp) 10 mg RC Q48H PRN PRN Reason: Constipation Stop: 03/25/18 23:03 Calcium Carbonate (Tums) 1,250 mg GT DAILY [facility] Stop: 03/26/18 08:59 Last Admin: 01/27/18 08:38 Dose: 1,250 mg Cholecalciferol (Vitamin D3) 500 iu GT BID [facility] Stop: 03/26/18 08:59 Last Admin: 01/27/18 08:39 Dose: 500 iu Diphenhydramine HCl (Benadryl) 25 mg GT PRN PRN PRN Reason: Rash Stop: 03/25/18 23:03 Diphenoxylate HCl/Atropine (Lomotil) 2 tab PO QID PRN PRN Reason: Diarrhea Stop: 03/25/18 23:07 Famotidine (Pepcid) 10 mg PO BID [facility] Stop: 03/26/18 08:59 Last Admin: 01/27/18 08:39 Dose: 10 mg Dextrose/Sodium Chloride (D5-0.45ns) 1,000 mls @ 80 mls/hr IV .[id number] [facility] Stop: 03/25/18 23:14 Last Infusion: 01/27/18 06:00 Dose: 80 mls/hr Metronidazole (Flagyl) 500 mg in 100 mls @ 100 mls/hr IV Q8HR [facility] Stop: 03/26/18 04:59 Last Admin: 01/27/18 12:17 Dose: 100 mls/hr Ciprofloxacin (Cipro 200mg Premix Pb) 200 mg in 100 mls @ 100 mls/hr IV Q12HR [facility] Stop: 03/26/18 20:59 Last Infusion: 01/27/18 11:17 Dose: Infused Ipratropium [place] (Atrovent Neb 0.5mg/2.5ml) 0.5 mg HHN Q2HRT PRN PRN Reason: Shortness of Breath or Wheeze Stop: 03/25/18 23:05 Lacosamide (Vimpat) 200 mg GT BID [facility] Stop: 03/26/18 08:59 Last Admin: 01/27/18 08:39 Dose: 200 mg Lactobacillus Rhamnosus (Culturelle 15b) 1 each PO DAILY [facility] Stop: 03/28/18 08:59 Last Admin: 01/27/18 12:18 Dose: 1 each Levothyroxine Sodium (Synthroid) 0.088 mg GT QDAC [facility] Stop: 03/26/18 07:29 Last Admin: 01/27/18 06:40 Dose: 0.088 mg Lisinopril (Zestril) 10 mg GT DAILY [facility] Stop: 03/26/18 08:59 Last Admin: 01/27/18 08:40 Dose: 10 mg Lorazepam (Ativan) 1 mg IV Q4H PRN; Protocol PRN Reason: Seizure Stop: 03/25/18 23:05 Miscellaneous (Probiotic Screen) 1 ea MC PRN PRN PRN Reason: PROTOCOL Stop: 03/28/18 08:44 Mupirocin (Bactroban Oint) 1 appl TP BID [facility] Stop: 01/31/18 16:59 Last Admin: 01/27/18 09:22 Dose: 1 appl Ondansetron HCl (Zofran) 4 mg IV Q8H PRN PRN Reason: Nausea / Vomiting Stop: 03/25/18 23:07 Oxybutynin Chloride (Ditropan) 10 mg GT DAILY [facility] Stop: 03/26/18 08:59 Last Admin: 01/27/18 08:35 Dose: 10 mg Triamcinolone Acetonide (Kenalog 0.025% Cre) 1 appl TP BID [facility] Stop: 03/26/18 08:59 Last Admin: 01/27/18 09:21 Dose: 1 appl Valproate Sodium (Depakene) 500 mg GT DAILY@1800 [facility]; Protocol Stop: 03/26/18 17:59 Last Admin: 01/26/18 17:01 Dose: 500 mg Valproate Sodium (Depakene) 250 mg GT BID@0600,1400 [facility]; Protocol Stop: 03/26/18 05:59 Last Admin: 01/27/18 06:42 Dose: 250 mg General: congested, demented HEENT: NC/AT, PERRLA Neck: Supple, No JVD, No LAD, deformity Lungs: congested, rales, ronchi Cardiovascular: RRR, Normal S1, Normal S2, with murmur Abdomen: soft, non-distended Extremities: excoriation, contracture Neurological: no change Internal Medicine Assmt/Plan - Assessment Assessment: Acute uti with citrobacter freundii and pseudomonas aeruginosa nausea/vomiting abdominal pain diarrhea mental retardation leukocytosis hyponatremia acute renal insufficiency seizure hypercholesterolemia hepatitis B - Plan Plan: continue with iv cipro monitor electrolytes follow up labs in am continue current plan of care Nutritional Asmnt/Malnutr-PDOC - Dietary Evaluation Malnutrition Findings (Please click <Entered> for more info): Nutritional Asmnt/Malnutrition Start: 01/25/18 11: 08 Text: Status: Complete Freq: Protocol: Document 01/25/18 11:08 BETH (Rec: 01/25/18 11:19 MMSANAZ LE[place]- FNS1) Nutritional Asmnt/Malnutrition Patient General Information Nutritional Screening High Risk Consult Diagnosis UTI, Generalized weakness, dehydration Pertinent Medical Hx/Surgical Hx PROFOUND INTELLECTUAL DISABILITY, HYPERCHOLESTEROLEMIA, HYPOTHYROIDISM, SEIZURES, 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 Current Tube feeding regimen providing 1422 ml fluid, 1706 kcal, 79gm protein, 1147 ml free water. Patient noted to have mild temporal wasting. Spoke with RN at patient's bedside; states he is tolerating bolus feedings well. Current Diet Order/ Nutrition Support Jevity 1.2 Bolus Feedings, 2 cans TID at 6:30am, 1:30pm, 5: 30pm Patient / S.O Not Indicated Pertinent Medications Dulcolax, Tums, Vitamin D3, D5 -0.45 NS @80ml/hr, Pepcid, Synthroid, Flagyl, Zofran Pertinent Labs (01/24) Na 127, BUN 26 Nutritional Hx/Data Height 5 ft 4 in Height (Calculated Centimeters) 162.6 Current Weight (lbs) 154 lb Weight (Calculated Kilograms) 69.9 Weight (Calculated Grams) 77285.2 [place] Body Weight 130 % [place] Body Weight 118 Body Mass Index (BMI) 26.4 Recent Weight Change No Weight Status Overweight GI Symptoms GI Symptoms None Last BM None indicated in EMR Difficult in: None Food Allergies No Cultural/Ethnic/Mu-Ism Belief None indicated Usual diet at home Bolus tube feedings Skin Integrity/Comment: Emile 11, pressure area on Sacrum Estimated Nutritional Goals BEE in Kcals: Using Current wt Calories/Kcals/Kg (25-30 kcal/kg) Using Current body weight 70kg Kcals Calculated ~4776-6716 kcal/day Protein: Using Current wt Protein g/k-1.2 gm/kg using CBW - Sacral redness Protein Calculated ~70-85 gm/day Fluid: ml ~3166-9252 ml/day (1 ml/kcal) Nutritional Problem 1. Problem Problem Altered nutrition related lab values related to Etiology electrolyte imbalance aeb Signs/Symptoms: Na 127 Intervention/Recommendation Comments 1. Continue current tube feeding regimen as it is adequate to meet nutrient needs. 2. If Na remains low, consider modifying to a more concentrated formula such as TwoCal (would need 900ml/day to meet nutrient need). Expected Outcomes/Goals Expected Outcomes/Goals Tube feeding to meet >75% of nutrient needs, weight stable, nutrition related labs / Na level normalize. F/U MR in 3-5 days (01/28-)
[2018-01-27] MEDS: D5-0.45NS 1,000 ML IV SCH (15:29)
[2018-01-28] MEDS: D5-0.45NS 1,000 ML IV SCH ×2 (04:40→04:43)
[2018-01-28 06:13] LABS: FOLIC ACID >20.0 ng/mL (>3.0)
[2018-01-28 06:27] LABS: % BASOPHILS 0.7 % (0.0-2.0); % LYMPHOCYTES 32.8 % (20.0-50.0); % MONOCYTES 12.9 % (2.0-10.0); % NEUTROPHILS 50.6 % (40.0-80.0); EOSINOPHILE ABSOLUTE 0.2 Th/cmm (0.1-0.4); HEMATOCRIT 38.3 % (41.0-60); HEMOGLOBIN 13.1 gm/dL (12-16); LYMPHOCYTE ABSOLUTE 1.7 Th/cmm (1.5-3.0); MEAN CELL VOLUME 90.8 fl (80-99); MEAN CORPUSCULAR HEMOGLOBIN 30.9 pg (27.0-31.0); MEAN CORPUSCULAR HGB CONC 34.1 pg (28.0-36.0); MEAN PLATELET VOLUME 6.9 fl; MONOCYTE ABSOLUTE 0.7 Th/cmm (0.3-1.0); NEUTROPHILE ABSOLUTE 2.5 Th/cmm (1.8-8.0); PLATELET COUNT 240 Th/cmm (150-400); RED BLOOD COUNT 4.22 Mil/cmm (3.80-5.80); RED CELL DISTRIBUTION WIDTH 12.1 % (11.5-20.0); WHITE BLOOD COUNT 5.1 Th/cmm (4.8-10.8)
[2018-01-28 06:37] LABS: BUN - UREA NITROGEN 13 mg/dL (7-25); CALCIUM SERUM 9.3 mg/dL (8.6-10.3); CARBON DIOXIDE 29.1 mEq/L (21.0-31.0); CHLORIDE 96 mEq/L (98-107); CREATININE - SERUM 0.6 mg/dL (0.7-1.3); GLUCOSE 96 mg/dL (70-105); POTASSIUM SERUM 4.1 mEq/L (3.5-5.1); SODIUM SERUM 132 mEq/L (136-145)
[2018-01-28] MEDS: Ciprofloxacin 200mg Premix PB 200 MG/100 ML BAG IV SCH (08:41)
[2018-01-28] MEDS: Triamcinolone Acet 0.025% Cream 15 gm TP SCH ×2 (08:43→16:12)
[2018-01-28] MEDS: Lactobacillus Rhamnosus GG 15 Billion CFU CAP.SPRINK PO SCH (08:44)
[2018-01-28] MEDS: Levothyroxine 0.088 Mg Tab GT SCH (08:44)
[2018-01-28] MEDS: Multivitamin w/ Minerals Tab GT SCH (08:45)
[2018-01-28] MEDS ORDERED: Sulfamethoxazole/TMP 800/160mg Tab PO SCH (17:00)
--- NOTE | 2018-01-28 22:47 | Discharge Summary ---
DATE OF DISCHARGE: 01/28/2018 FINAL DIAGNOSES: Acute urinary tract infection, nausea, vomiting, which has resolved, abdominal pain, which has resolved, diarrhea resolved, MR, leukocytosis resolved, hyponatremia corrected, renal insufficiency, seizure, hypercholesterolemia, hepatitis B. HISTORY OF PRESENT ILLNESS: This is a 77-year-old man with a history of seizure disorder, intellectual disability, MR, hepatitis B, admitted from nursing facility secondary to not feeling well. The patient was brought in the ER, noted to be dehydrated with acute urinary tract infection. PHYSICAL EXAMINATION: GENERAL: Elderly male, awake, alert, in no apparent distress. VITAL SIGNS: Stable. HEENT: Normocephalic, atraumatic. NECK: Supple, no masses. LUNGS: Clear bilaterally. HEART: Regular rate and rhythm. ABDOMEN: Soft, nontender. HOSPITAL COURSE: During the hospital stay, the patient was admitted to the med-surg unit. The patient was kept on aggressive IV fluids for hydration. The patient was also kept on IV antibiotics of Cipro and Flagyl. 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 The patient was treated for both. The patient's WBCs was within normal limits. No episodes of any fevers. For this reason, the patient is stable for discharge. CONDITION UPON DISCHARGE: Fair. DISPOSITION: Rest care. The patient to continue Bactrim DS x 7 days. JOB# [id number]
== END 2018-01-28 16:30 | disposition home or self-care (01) | DRG 640 ==
LOC: ER 21:51 → MSI 23:35
PROVIDERS: ADMIT Internal Medicine; ATTEND Internal Medicine
DX: E87.1 Hypo-osmolality and hyponatremia (principal); G93.41 Metabolic encephalopathy; R53.2 Functional quadriplegia; N39.0 Urinary tract infection, site not specified; B19.10 Unspecified viral hepatitis B without hepatic coma; F79 Unspecified intellectual disabilities; E78.5 Hyperlipidemia, unspecified; F03.90 Unspecified dementia, unspecified severity, without behavioral disturbance, psychotic disturbance, mood disturbance, and anxiety; E86.0 Dehydration; N31.2 Flaccid neuropathic bladder, not elsewhere classified; G40.909 Epilepsy, unspecified, not intractable, without status epilepticus; R19.7 Diarrhea, unspecified; E78.00 Pure hypercholesterolemia, unspecified; R11.2 Nausea with vomiting, unspecified; R10.9 Unspecified abdominal pain; B96.89 Other specified bacterial agents as the cause of diseases classified elsewhere; B96.5 Pseudomonas (aeruginosa) (mallei) (pseudomallei) as the cause of diseases classified elsewhere; N28.9 Disorder of kidney and ureter, unspecified; Z88.1 Allergy status to other antibiotic agents; Z93.1 Gastrostomy status
CPT/HCPCS: 36415-UA; 71045-TC; 80048-TC; 80053-TC; 81001-TC; 82140-TC; 82607-90; 82746-90; 83605; 83690-TC; 83880-TC; 84484-TC; 85025-TC; 87086-90; 90799; 93005; 94760; 96375; J0744; J1956; J7030; Z7610